=== PATIENT | male | born 1940 | race Two or more races ===

== ENCOUNTER 2020-09-28 13:40 | Inpatient (IN) | payer SELFPAY ==
[~2020-09-28] VITALS: Ht 162.6 cm; Wt 64.9 kg
[2020-09-28] VITALS (7 sets, daily range): BP systolic 99–140; BP diastolic 43–72
--- NOTE | 2020-09-28 13:41 | NUR ---
ED Nurse Note: Pt arrived with RA68 from home due to CP for x 3 days. pt denies dizziness, n/v/d. Pt was placed on panel monitor and gown. pt was given 4Lnasal cannula by EMS, pt saturating 90%. Pt began to de sat to 86%, pt placed on 15 L nonrebreathing saturaing at 98% Addendum: 09/28/20 at 1354 by PDELEON ED Nurse Note: Pt arrived with RA68 from home due to CP for x 3 days. pt denies dizziness, n/v/d. Pt was placed on panel monitor and gown. pt was given 4Lnasal cannula by EMS, pt saturating 90%. Pt began to de sat to 75-86%, pt placed on 15 L nonrebreathing saturaing at 90%
--- NOTE | 2020-09-28 13:54 | NUR ---
ED Nurse Note: informed ermd of pt staruation, called RT to place pt on high flow.
[2020-09-28] MEDS ORDERED: Albuterol/Ipratropium 3ml neb HHN ONE ×2 (14:15→17:45)
[2020-09-28] MEDS ORDERED: Cefepime HCl 2 GM in D5W 55 ML IVPB ONE (14:15)
[2020-09-28] MEDS ORDERED: Azithromycin 500 MG in NS 275 ML IV ONE (14:15)
[2020-09-28] MEDS ORDERED: dexAMETHasone 10mg/ml Inj IV ONE (14:15)
--- NOTE | 2020-09-28 14:18 | Emergency Room Report ---
History of Present Illness General Chief Complaint: Chest Pain Source: Patient Present Illness HPI Patient is an 80-year-old male past medical history of obesity, hypertension diabetes who presents to the ER complaining of chest pain for 3 days. Patient denies any fever or chills. He denies any cough or shortness of breath. He states that he does have a sick family member at home. Patient denies any smoki ng. He denies any lower extremity pain or edema. He denies any recent travel. She denies any abdominal pain, nausea or vomiting. Allergies: Coded Allergies: No Known Allergies (Unverified , 09/28/20) COVID-19 Screening Contact w/high risk pt: No Experienced COVID-19 symptoms?: No COVID-19 Testing performed LOAD TALLIER: No Patient History Reviewed Nursing Documentation: PMH: Agreed; PSxH: Agreed Review of Systems All Other Systems: negative except mentioned in HPI Physical Exam Vital Signs Date Time Temp Pulse Resp B/P (MAP) Pulse Ox O2 Delivery O2 Flow Rate FiO2 09/28/20 13:35 98.2 78 14 133/59 (83) 90 Nasal Cannula 4.0 Sp02 EP Interpretation: abnormal - hypoxia General Appearance: no apparent distress, alert, GCS 15, non-toxic Head: normocephalic, atraumatic ENT: hearing grossly normal, normal pharynx, no angioedema, normal voice Neck: full range of motion, no meningismus Respiratory: rhonchi, speaking full sentences Cardiovascular #1: regular rate, rhythm Gastrointestinal: non tender, soft, no guarding, no rebound Rectal: deferred Genitourinary: no CVA tenderness Musculoskeletal: normal range of motion, no calf tenderness Neurologic: building surveyor III-XII nml as tested, oriented x3 Psychiatric: no suicidal/homicidal ideation Skin: no rash Lymphatic: no adenopathy Procedures Critical Care Time Critical Care Time Total critical care time: Approximately 35 minutes. Due to a high probability of clinically significant, life threatening deterioration, the patient required my highest level of preparedness to intervene emergently and I personally spent this critical care time directly and personally managing the patient. This critical care time included obtaining a history; examining the patient; pulse oximetry; ordering and review of studies; arranging urgent treatment with development of a management plan; evaluation of patient's response to treatment; frequent reassessment; and, discussions with other providers.This critical care time was performed to assess and manage the high probability of imminent, life- threatening deterioration that could result in multi-organ failure. It was e xclusive of separately billable procedures and treating other patients and teaching time. Please see MDM section and the rest of the note for further information on patient assessment and treatment. Medical Decision Making Diagnostic Impression: Primary Impression: COVID-19 Additional Impressions: Pneumonia Anemia CHF (congestive heart failure) Acute renal failure ER Course Patient presents with chest pain. Patient hypoxic upon arrival. Patient placed on high flow O2 and given IV Decadron and started on DuoNeb. Oxygen saturation now 98%. Patient's chest x-ray demonstrates retrocardiac infiltrate. Patient started on broad-spectrum antibiotics. Patient is COVID-19 PCR positive. Patient's D-dimer elevated 2.7 with elevated creatinine of 1.7. Patient started on heparin. Patient will be admitted for further treatment and evaluation. Rhythm Strip Diag. Results Rhythm Strip Time: 14:18 EP Interpretation: yes - Sindy Portillo MD Rate: 73 bpm Rhythm: NSR, no PVC's, no ectopy Chest X-Ray Diagnostic Results Chest X-Ray Diagnostic Results : Chest X-Ray Ordered: Yes # of Views/Limited/Complete: 1 View Indication: Chest Pain EP Interpretation: Yes Interpretation: no effusion, no pneumothorax, other - Retrocardiac infiltrate Impression: Other - Pneumonia Electronically Signed by: Sindy Portillo MD Last Vital Signs Date Time Temp Pulse Resp B/P (MAP) Pulse Ox O2 Delivery O2 Flow Rate FiO2 09/28/20 13:50 78 14 Nasal Cannula 4.0 09/28/20 13:50 98.2 133/59 90 Disposition: ADMITTED INPATIENT - SDU Condition: Critical Physician Consult: Dr. Perez at 1543 Additional Instructions: Please note that this report is being documented using Active[employer] technology. This can lead to erroneous entry secondary to incorrect interpretation by the dictating instrument. Sindy Portillo M.D. Sep 28, 2020 14:18
[2020-09-28 14:36] LABS: BASOPHILS % (AUTO) 0.6 % (0.0-2.0); EOSINOPHILS % (AUTO) 0.1 % (0.0-3.0); HEMATOCRIT 29.9 % (42.0-52.0); HEMOGLOBIN 10.2 G/DL (14.2-18.0); LYMPHOCYTES % (AUTO) 18.8 % (20.0-45.0); MEAN CORPUSCULAR VOLUME 85 FL (80-99); MONOCYTES % (AUTO) 8.3 % (1.0-10.0); NEUTROPHILS % (AUTO) 72.2 % (45.0-75.0); PLATELET COUNT 206 K/UL (150-450); RED BLOOD COUNT 3.52 M/UL (4.70-6.10); RED CELL DISTRIBUTION WIDTH 12.7 % (11.6-14.8); WHITE BLOOD COUNT 7.5 K/UL (4.8-10.8)
[2020-09-28 14:48] LABS: CALCIUM 7.8 MG/DL (8.5-10.1); CREATININE 1.7 MG/DL (0.55-1.30); POTASSIUM 4.1 MMOL/L (3.5-5.1)
--- NOTE | 2020-09-28 15:00 | Diagnostic Imaging Report ---
Indication: Shortness of breath Technique: One view of the chest Comparison: None Findings: There is some consolidation in the retrocardiac region. There is atelectasis at the left lung base. The remainder the lungs and pleural spaces are clear. The heart is upper limits normal in size. Impression: Possible retrocardiac infiltrate Left basilar atelectasis
[2020-09-28 15:05] LABS: ALBUMIN 2.7 G/DL (3.4-5.0); ALBUMIN/GLOBULIN RATIO 0.7 (1.0-2.7); BILIRUBIN,TOTAL 0.4 MG/DL (0.2-1.0)
[2020-09-28] MEDS ORDERED: Heparin 5000 units/ml inj IV ONE (15:45)
[2020-09-28] MEDS ORDERED: Heparin 25,000u/D5W 500ml 500 ML IV SCH (15:45)
--- NOTE | 2020-09-28 18:04 | History and Physical Report ---
DATE OF ADMISSION: 09/28/2020 HISTORY OF PRESENT ILLNESS: This 80 years old patient came to the emergency room where he has COVID pneumonia, short of breath, hypoxia. Patient is now on non-rebreather mask. PAST MEDICAL HISTORY: Significant for hypertension, COPD. MEDICATIONS: See the list. ALLERGIES: NKA. FAMILY HISTORY: Noncontributory. SOCIAL HISTORY: Lives at home. PHYSICAL EXAMINATION: GENERAL: This is an elderly male, currently awake, comfortable. VITAL SIGNS: Blood pressure is 130/70, pulse 84, respirations 18, no fever. HEENT: AT/NC. EOMI. PERRLA. NECK: Supple. CHEST: Bilaterally few crackles. CARDIOVASCULAR: Regular rhythm. Tachycardia. ABDOMEN: Soft. Positive bowel sounds. Nontender. EXTREMITIES: No edema. GENITOURINARY: Deferred. LABORATORY DATA: Pending. ASSESSMENT: 1. COVID pneumonia. 2. COPD. 3. Hypertension. PLAN: Continue current treatment. Continue antibiotics. Add Decadron. We are going to admit him in the ICU. Discussed with the ER physician. Travis Perez M.D. DR: ELVIS JOB#: [id number] CC:
--- NOTE | 2020-09-28 19:10 | NUR ---
ED Nurse Note: Report received from EH STALLINGS Rt at bedside. Pt awake on bed, [id number]
--- NOTE | 2020-09-28 21:00 | NUR ---
ED Nurse Note: Pts daughter JOZEF called and would send the pts maintenance meds. Callback # [phone]
[2020-09-28] MEDS ORDERED: LOSARTAN POTASS25 MG ORAL (22:08)
[2020-09-28] MEDS ORDERED: METFORMIN HCL500 M1 ORAL (22:09)
[2020-09-28] MEDS ORDERED: AMLODIPINE BESY10 MG ORAL (22:10)
[2020-09-28] MEDS ORDERED: FLOMAX0.4 MG ORAL (22:10)
[2020-09-28] MEDS ORDERED: PROSCAR5 MG ORAL (22:11)
--- NOTE | 2020-09-28 22:30 | NUR ---
ED Nurse Note: Repeat PT sent; 6 hrs after start of heparin drip
--- NOTE | 2020-09-28 22:30 | NUR ---
ED Nurse Note: Report given to YINKA STALLINGS
--- NOTE | 2020-09-28 22:32 | NUR ---
ED Nurse Note: Pts meds deposited at pts med box and properly labeled and sealed.
--- NOTE | 2020-09-28 22:45 | NUR ---
TRANSFER TO FLOOR: Patient transferred to SDU to 234 per benito accompanied by RN, certified ophthalmic medical technician and RT with cardiac monitor technician. Belongings given and checked by RN. Patient transported safely to bed and endorsed to RN
--- NOTE | 2020-09-28 23:00 | NUR ---
NURSE NOTES: Received report from Da RN, pt. in bed awake, [place] Islander and little Malaysian speaking- able to understand and make needs known, no signs or symptoms of acute cardiac or respiratory distress noted, bed alarm on, side rails up x's 3 and safety brakes engaged, threat monitoring analyst placed on pt., pt. on High flow oxygen 50L Fio2 at 90%- sating >95- no distress noted- breathing unlabored and even, pt. unable to answer some questions as he does not speak much Malaysian, full body assessment done- skin intact, pt. denies pain, urinal at bedside and within easy reach, call light within easy reach, pt. has Rt. hand 18G IV intact and patent and Left left AC 18G IV intact and patent, safety measures continued, will continue with plan of care. Will contact primary MD for admission orders.
[2020-09-28 23:18] LABS: APPEARANCE,URINE CLEAR; BILIRUBIN, URINE NEGATIVE (NEGATIVE); COLOR,URINE PALE YELLOW; GLUCOSE, URINE (UA) NEGATIVE (NEGATIVE); KETONES,URINE NEGATIVE (NEGATIVE); LEUKOCYTE ESTERASE ,URINE NEGATIVE (NEGATIVE); NITRITE,URINE NEGATIVE (NEGATIVE); PH,URINE 5 (4.5-8.0); UROBILINOGEN,URINE NORMAL MG/DL (0.0-1.0)
--- NOTE | 2020-09-28 23:24 | NUR ---
NURSE NOTES: called DR. Escamilla exchange to get admission orders- per Teresa to call doctor Chris.
--- NOTE | 2020-09-28 23:27 | NUR ---
NURSE NOTES: Called DR. Perez for new admission orders- made doctor aware of D dimer results 0.76- per doctor to d/c Heparin drip- admission orders given over the phone- telephone orders re-verified and carried out.
[2020-09-28 23:37] LABS: PROTEIN,URINE NEGATIVE (NEGATIVE)
[2020-09-28] MEDS ORDERED: Albuterol 90mcg Inhaler 8gm INH PRN (23:45)
[2020-09-29] VITALS: BP 113/54
[2020-09-29 04:00] VITALS: BP 123/63
[2020-09-29] MEDS: Heparin 5000 units/ml inj SUBQ SCH ×2 (05:03→13:41)
--- NOTE | 2020-09-29 06:58 | NUR ---
NURSE HAND-OFF REPORT: Important Events on Shift:none Patient Status: stable Diet: regular Pending Orders: Pending Results/Labs: Pending MD notification: Latest Vital Signs: Temperature 97.5 , Pulse 62 , B/P 123 /63 , Respiratory Rate 20 , O2 SAT 100 , Venturi Mask, O2 Flow Rate 50.0 . Vital Sign Comment: EKG Rhythm: Sinus Bradycardia Rhythm change?: Y MD Notified?: N - MD Response: Latest Ross Fall Score: 45 Fall Risk: High Risk Safety Measures: Call light Within Reach, Bed Alarm Zone 3, Side Rails Side Rails x3, Bed position Low and Locked. Fall Precautions: Yellow Socks Yellow Gown Door Sign Patient Fall Education Report given to Raymon Gao- pt. remains stable and no signs of distress noted- aware to f/u on any abnormal am labs. Aware to f/u on patients home medications.
--- NOTE | 2020-09-29 07:30 | NUR ---
NURSE NOTES: Received report from HAYLIE Johnson. Patient is resting in bed, in stable condition. No s/sx of SOB, breathing is even and unlabored, on high flow oxygen 50 L FiO2 90% SpO2 95%. Patient denies pain or discomfort at this time. Bed is in lowest position, brakes engaged. Call light is kept within easy reach. Will continue to monitor patient.
[2020-09-29 08:00] VITALS: BP 119/64
--- NOTE | 2020-09-29 09:00 | NUR ---
NURSE NOTES: Dr. Chairez at nurse station. Made aware of patient's ABG: pH 7.396, pCO2 33.5, pO2 65.9, HCO3 20.1, O2 saturation 92. 1 SpO2 94%. Patient is on high flow oxygen 50 L FiO2 90%. Dr. Chairez acknowledged and gave no new orders at this time. Will continue to monitor patient.
--- NOTE | 2020-09-29 09:49 | General Progress Note ---
Subjective Cardiovascular: Denies: no symptoms, chest pain, edema, irregular heart rate, lightheadedness, palpitations, syncope, other Respiratory: Reports: cough, orthopnea, shortness of breath Allergies: Coded Allergies: No Known Allergies (Unverified , 09/28/20) Subjective sob on high flow Objective Last 24 Hour Vital Signs Date Time Temp Pulse Resp B/P (MAP) Pulse Ox O2 Delivery O2 Flow Rate FiO2 09/29/20 08:00 High Flow O2 50.0 09/29/20 08:00 97.7 65 20 119/64 (82) 95 09/29/20 08:00 50.0 90 09/29/20 04:00 50.0 90 09/29/20 04:00 High Flow O2 50.0 09/29/20 04:00 97.5 62 20 123/63 (83) 100 09/29/20 03:05 53 09/29/20 02:52 96 High Flow 50.0 80 09/29/20 01:32 96 High Flow 50.0 80 09/29/20 00:00 54 09/29/20 00:00 50.0 90 09/29/20 00:00 97.2 66 22 113/54 (73) 97 09/29/20 00:00 High Flow O2 50.0 09/28/20 23:38 58 09/28/20 23:04 High Flow O2 50.0 09/28/20 23:02 98.5 65 20 121/68 98 15.0 90 09/28/20 23:00 96.8 61 22 140/54 (82) 95 09/28/20 22:58 50.0 90 09/28/20 22:00 98.5 68 20 127/72 98 15.0 90 09/28/20 20:30 98.5 66 20 118/58 99 15.0 90 09/28/20 19:55 98 High Flow 90 09/28/20 19:30 98.5 63 19 121/68 100 Venturi Mask 15.0 90 09/28/20 19:17 72 20 100 100 67 20 100 09/28/20 17:25 98.5 69 22 120/48 100 Nasal Cannula 4.0 09/28/20 15:20 98.2 77 19 99/43 98 Nasal Cannula 4.0 09/28/20 13:50 78 14 Nasal Cannula 4.0 09/28/20 13:50 98.2 76 14 133/59 90 Nasal Cannula 4.0 09/28/20 13:35 98.2 78 14 133/59 (83) 90 Nasal Cannula 4.0 Intake and Output 09/28/20 09/29/20 19:00 07:00 Intake Total 330 ml Output Total 0 ml 400 ml Balance 330 ml -400 ml Intake IV Total 330 ml Output Urine Total 0 ml 400 ml Laboratory Tests 09/28/20 13:53: White Blood Count 7.5, Red Blood Count 3.52L, Hemoglobin 10.2L, Hematocrit 29.9L , Mean Corpuscular Volume 85, Mean Corpuscular Hemoglobin 29.1, Mean Corpuscular Hemoglobin Concent 34.3, Red Cell Distribution Width 12.7, Platelet Count 206, Mean Platelet Volume 9.2, Neutrophils (%) (Auto) 72.2, Lymphocytes (%) (Auto) 18.8L, Monocytes (%) (Auto) 8.3, Eosinophils (%) (Auto) 0.1, Basophils (%) (Auto) 0.6, Prothrombin Time 10.5, Prothromb Time International Ratio 1.0, Activated Partial Thromboplast Time 34H, D-Dimer 0.76H, Sodium Level 134L, Potassium Level 4.1, Chloride Level 102, Carbon Dioxide Level 21, Anion Gap 11, Blood Urea Nitrogen 28H, Creatinine 1.7H, Estimat Glomerular Filtration Rate 38.9, Glucose Level 251H, Lactic Acid Level 3.00H, Calcium Level 7.8L, Magnesium Level 1.9, Ferritin 1518H, Total Bilirubin 0.4, Aspartate Amino Transf (AST/SGOT) 45H, Alanine Aminotransferase (ALT/SGPT) 29, Alkaline Phosphatase 84, Lactate Dehydrogenase 333H, Troponin I 0.017, C-Reactive Protein, Quantitative 17.4H, Pro-B-Type Natriuretic Peptide 2225H, Total Protein 6.6, Albumin 2.7L, Globulin 3.9, Albumin/Globulin Ratio 0.7L 09/28/20 15:40: Lactic Acid Level 2.50H 09/28/20 17:01: Arterial Blood pH 7.396, Arterial Blood Partial Pressure CO2 33.5L, Arterial Blood Partial Pressure O2 65.9L, Arterial Blood HCO3 20.1L, Arterial Blood Oxygen Saturation 92.1L, Arterial Blood Base Excess -4.1L, Pratik Test Positive 09/28/20 22:30: Prothrombin Time 11.1, Prothromb Time International Ratio 1.0, Activated Partial Thromboplast Time 74H 09/28/20 23:00: Urine Color Pale yellow, Urine Appearance Clear, Urine pH 5, Urine Specific [place] 1.015, Urine Protein Negative, Urine Glucose (UA) Negative, Urine Ketones Negative, Urine Blood Negative, Urine Nitrite Negative, Urine Bilirubin Negative, Urine Urobilinogen Normal, Urine Leukocyte Esterase Negative Height (Feet): 5 Height (Inches): 4.00 Weight (Pounds): 143 General Appearance: alert EENT: PERRL/EOMI Neck: supple Cardiovascular: regular rhythm Respiratory/Chest: crackles/rales Abdomen: non tender, soft Genitourinary/Rectal: normal genital exam Extremities: non-tender Edema: mild edema Neurologic: design engineering technician II-XII grossly normal Assessment/Plan Assessment/Plan: covid 19 pna arf anemia admit to isolation decadron iv abx id and pulmo consult Davis Perez MD Sep 29, 2020 09:49
[2020-09-29 12:00] VITALS: BP 117/52
--- NOTE | 2020-09-29 12:25 | NUR ---
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 SI: COVID-19, Pneumonia, CHF, Acute Renal Failure, hypertension Pao2 75% on RA--O2 increased steadily to 50L high flow Fio2 90%-- Temp 98.2, HR 78, Resp 22, BP 133/59 ABG pco2 33.5, po2 65.9, hco3 20.1, o2 saturation 92.1, abg base excess -4.1 Na+ 134, BUN 28, Lactic acid 2.50, Cxray possible retrocardiac infiltrate, left basilar atelectasis IS: Cefepime IV Azithromycin IV Dexamethasone IV O2 -High flow O2 50L, FIo2 90 admit to SDU SDU status DCP: Pending hospitalization
[2020-09-29] MEDS: Azithromycin 500 MG in D5W 275 ML IV SCH (13:40)
[2020-09-29] MEDS ORDERED: metFORMIN 500mg tab ORAL ONE (14:00)
--- NOTE | 2020-09-29 14:44 | Consultation ---
DATE OF CONSULTATION: 09/29/2020 INFECTIOUS DISEASE CONSULTATION CONSULTING PHYSICIAN: Cm Quintanilla MD. REFERRING PHYSICIAN: Davis Perez MD. This consult is for coverage of Dr. Muñoz. REASON FOR CONSULTATION: COVID-19 disease. HISTORY OF PRESENT ILLNESS: This is an 80-year-old male admitted from home yesterday complaining of chest pain. He was also shortness of breath, hypoxemic, was found to have COVID-19 disease. PAST MEDICAL HISTORY: Diabetes and hypertension. ALLERGIES: No known drug allergies. MEDICATIONS: Cozaar, amlodipine, Proscar, Flomax, cefepime, azithromycin, dexamethasone, albuterol, and Tylenol. SOCIAL HISTORY: Single. Denies alcohol, drug abuse, or smoking. REVIEW OF SYSTEMS: Limited. Denies fever, but has dry cough and shortness of breath. PHYSICAL EXAMINATION: VITAL SIGNS: Temperature 97.7, pulse 65, blood pressure 119/64. GENERAL APPEARANCE: Seems to have normal weight. HEAD AND NECK: [place] conjunctivae. HEART: Normal rate. LUNGS: Getting oxygen by high-flow nasal cannula. Clear. ABDOMEN: Obese, soft. EXTREMITIES: No edema. NEUROLOGIC: He is awake, alert, responsive. LABORATORY AND DIAGNOSTIC DATA: WBC 7.5, hemoglobin 10.2, hematocrit 29.9, and platelets 206,000. Lymphocyte is 18.8%. Lactic acid is 2.5, coming down from 3. Sodium 134, potassium 4.1, chloride 102, bicarb 21, BUN 28, creatinine 1.7. Glucose is 251. Chest x-ray showed possible retrocardiac infiltrate, left basilar atelectasis. COVID-19 test was positive. Influenza A and B were negative. IMPRESSION: COVID-19 pneumonia, hypoxic respiratory failure, renal failure likely acute, diabetes mellitus with hyperglycemia, hypertension, anemia, lactic acidosis, lymphocytopenia. RECOMMENDATION: Discontinue cefepime. We will continue Zithromax and dexamethasone. Case was discussed with the pharmacy. At the end of my exam, I thank Dr. Perez for involving me in the care of this patient. Cm Quintanilla M.D. DR: JOSEFINA JOB#: [id number] CC:
[2020-09-29] MEDS ORDERED: Cefepime HCl 1 GM in D5W 55 ML IVPB SCH (15:00)
[2020-09-29 16:00] VITALS: BP 118/51
--- NOTE | 2020-09-29 16:01 | Consultation ---
DATE OF CONSULTATION: 09/29/2020 PULMONARY CONSULTATION CONSULTING PHYSICIAN: Harry Chairez M.D. HISTORY OF PRESENT ILLNESS: This is an 80-year-old male with history of hypertension and diabetes, who came to the hospital with chest pain. The patient has been having this pain for several days. He denies cough or shortness of breath. He does not report any tobacco use history. Denies any sick contact. The patient was seen and evaluated in the emergency room and admitted to the hospital after he was found to be possible COVID-19 by rapid gene assay. The patient also underwent a chest x-ray, which shows a small left infiltrate. The patient was found to be hypoxic and started on high-flow oxygen. Currently, he is on liters FiO2 90%. Saturations are 93%. PAST HISTORY: Notable for hypertension, diabetes, and also obesity. HOME MEDICATIONS: Reviewed and reconciled in the chart. REVIEW OF SYSTEMS: Denies any headaches, hematemesis, melena, hematochezia, night sweats or weight loss. PHYSICAL EXAMINATION: GENERAL: Reveals an 80-year-old male. HEENT: Unremarkable. LUNGS: Decreased breath sounds bilaterally. HEART: Normal heart sounds. ABDOMEN: Soft. EXTREMITIES: There is no edema. VITAL SIGNS: Blood pressure of 120/60, heart rate 80, respirations 20, O2 saturation 93% on high-flow oxygen. LABORATORY DATA: Lab testing shows hemoglobin 10.2, otherwise normal CBC. Creatinine is 1.7, sodium 134, glucose 251, lactic acid 3.0, ferritin 1518, AST 45, LDH 333, CRP 17.4, questionable D-dimer of 0.76. IMPRESSION: 1. COVID-19 pneumonia. 2. Hypertension. 3. Diabetes. DISCUSSION: Admit to the hospital. We will continue high-flow oxygen. Agree with the use of empiric antibiotics. He is also on Decadron orally. DVT prophylaxis with subcu heparin. We will follow carefully. Harry Chairez M.D. DR: PRESTON/MACIEL JOB#: [id number] CC:
--- NOTE | 2020-09-29 18:21 | NUR ---
NURSE NOTES: Contacted and informed Dr. Perez that per pharmacy unable to continue Metformin 500 mg PO Daily due to elevated creatinine level of 1.7. Dr. Perez acknowledged and ordered patient on medium Novolog insulin sliding scale ACHS. Order entered, noted, and carried out. Will continue to monitor patient.
--- NOTE | 2020-09-29 18:23 | Cardiology Progress Note ---
Assessment/Plan Assessment/Plan The patient is seen and examined, full consult note is dictated. Objective Last 24 Hour Vital Signs Date Time Temp Pulse Resp B/P (MAP) Pulse Ox O2 Delivery O2 Flow Rate FiO2 09/29/20 16:00 High Flow O2 50.0 09/29/20 16:00 98.1 64 25 118/51 (73) 94 09/29/20 16:00 50.0 90 09/29/20 16:00 64 09/29/20 15:57 93 High Flow 50.0 80 09/29/20 12:00 High Flow O2 50.0 09/29/20 12:00 97.2 66 20 117/52 (73) 93 09/29/20 12:00 64 09/29/20 12:00 50.0 90 09/29/20 11:55 94 High Flow 50.0 80 09/29/20 08:00 High Flow O2 50.0 09/29/20 08:00 75 09/29/20 08:00 97.7 65 20 119/64 (82) 95 09/29/20 08:00 50.0 90 09/29/20 07:59 93 High Flow 50.0 80 09/29/20 04:00 50.0 90 09/29/20 04:00 High Flow O2 50.0 09/29/20 04:00 97.5 62 20 123/63 (83) 100 09/29/20 03:05 53 09/29/20 02:52 96 High Flow 50.0 80 09/29/20 01:32 96 High Flow 50.0 80 09/29/20 00:00 54 09/29/20 00:00 50.0 90 09/29/20 00:00 97.2 66 22 113/54 (73) 97 09/29/20 00:00 High Flow O2 50.0 09/28/20 23:38 58 09/28/20 23:04 High Flow O2 50.0 09/28/20 23:02 98.5 65 20 121/68 98 15.0 90 09/28/20 23:00 96.8 61 22 140/54 (82) 95 09/28/20 22:58 50.0 90 09/28/20 22:00 98.5 68 20 127/72 98 15.0 90 09/28/20 20:30 98.5 66 20 118/58 99 15.0 90 09/28/20 19:55 98 High Flow 90 09/28/20 19:30 98.5 63 19 121/68 100 Venturi Mask 15.0 90 09/28/20 19:17 72 20 100 100 67 20 100 Intake and Output 09/28/20 09/29/20 19:00 07:00 Intake Total 330 ml Output Total 0 ml 400 ml Balance 330 ml -400 ml IV Total 330 ml Output Urine Total 0 ml 400 ml Laboratory Tests Test 09/28/20 22:30 09/28/20 23:00 Prothrombin Time 11.1 SEC (9.30-11.50) Prothromb Time International Ratio 1.0 (0.9-1.1) Activated Partial Thromboplast Time 74 SEC (23-33) H Urine Color Pale yellow Urine Appearance Clear Urine pH 5 (4.5-8.0) Urine Specific [place] 1.015 (1.005-1.035) Urine Protein Negative (NEGATIVE) Urine Glucose (UA) Negative (NEGATIVE) Urine Ketones Negative (NEGATIVE) Urine Blood Negative (NEGATIVE) Urine Nitrite Negative (NEGATIVE) Urine Bilirubin Negative (NEGATIVE) Urine Urobilinogen Normal MG/DL (0.0-1.0) Urine Leukocyte Esterase Negative (NEGATIVE) Microbiology Date/Time Source Procedure Growth Status 09/28/20 14:10 Nasal Nares - Final Complete 09/28/20 14:10 Nasal Nares - Final Complete 09/28/20 14:10 Nasopharynx SARS-CoV-2 RdRp Gene Assay - Final Complete 09/28/20 14:10 Blood Blood Culture - Preliminary NO GROWTH AFTER 24 HOURS Resulted 09/28/20 13:50 Blood Blood Culture - Preliminary NO GROWTH AFTER 24 HOURS Resulted Mitch Eldridge MD Sep 29, 2020 18:23
[2020-09-29] MEDS ORDERED: Aspirin Baby 81mg ORAL SCH (18:45)
--- NOTE | 2020-09-29 19:14 | NUR ---
NURSE HAND-OFF REPORT: Important Events on Shift: Patient Status: Stable Diet: Low sodium CCHO medium Pending Orders: None Pending Results/Labs:None Pending MD notification:None Latest Vital Signs: Temperature 98.1 , Pulse 64 , B/P 118 /51 , Respiratory Rate 25 , O2 SAT 94 , Venturi Mask, O2 Flow Rate 50.0 . Vital Sign Comment: Stable EKG Rhythm: SR,BBB Rhythm change?: N MD Notified?: N - MD Response: Latest Ross Fall Score: 45 Fall Risk: High Risk Safety Measures: Call light Within Reach, Bed Alarm Zone 2, Side Rails Side Rails x2, Bed position Low and Locked. Fall Precautions: Yellow Socks Yellow Gown Door Sign Patient Fall Education Report given to HAYLIE Mcintyre.
--- NOTE | 2020-09-29 19:24 | NUR ---
NURSE NOTES: Received report from HAYLIE Gao. Pt is awake, A/Ox4, Vietnamese speaking. No signs of distress or pain noted at this time. Pt is on high flow O2 50L, 90% FiO2, O2 saturation 94%. drone software development engineer shows SR. L AC 18g and R hand 18g asymptomatic and flushes well. Call light within reach. HOB elevated, side rails x2, bed alarmed, locked and in lowest position.
[2020-09-29 20:00] VITALS: BP 121/56
--- NOTE | 2020-09-29 20:45 | Consultation ---
DATE OF CONSULTATION: 09/29/2020 CARDIOLOGY CONSULTATION CONSULTING PHYSICIAN: Mitch Eldridge M.D. REFERRING PHYSICIAN: Travis Perez M.D. REASON FOR CONSULTATION: Management of chest pain. HISTORY OF PRESENT ILLNESS: The patient is a very unfortunate 80-year-old gentleman, who presents to the emergency department complaining of chest pain for about three days. At the time of arrival to the hospital, the patient denied any fever, chills, or nonproductive cough, loss of taste or smell. But, he claimed that he was exposed to a very sick family member at home. It is not clear whether the patient has had any COVID-19 exposure. His past medical history is significant for obesity and hypertension as well as diabetes mellitus. At the time of arrival to the emergency department, blood pressure was 133/59 mmHg and heart rate was 78. A 12-lead electrocardiogram was significant for sinus rhythm at a rate of 68 beats, a right bundle-branch block, but no acute ischemic features. In addition, the patient had left posterior fascicular block. In the emergency department, initial evaluation including chest x-ray revealed possible retrocardiac infiltration and left basilar atelectasis. Microbiology COVID-19 positive PCR. Laboratory finding was significant for anemia with a hemoglobin of 10.2 as well as elevation of BUN and creatinine at 28 and 1.7 respectively. Troponin I level was 0.017 and proBNP was 2225. The patient was admitted to [facility] for further evaluation and management of COVID-19 pneumonia and associated congestive heart failure. Cardiology consultation was made to address chest pain and elevation of brain-natriuretic peptide. PAST MEDICAL HISTORY: Obesity, hypertension, diabetes mellitus. ALLERGIES: No known drug allergies. PAST SURGICAL HISTORY: None. FAMILY HISTORY: No premature coronary artery disease in the first-degree relatives. REVIEW OF SYSTEMS: A 12-system review done essentially negative except what was mentioned in the history of present illness. MEDICATIONS: List of medications at home, losartan 100 mg p.o. daily, Proscar 5 mg p.o. daily, amlodipine 10 mg p.o. daily, metformin 500 mg once daily, and Flomax 0.4 mg p.o. daily. PHYSICAL EXAMINATION: VITAL SIGNS: Blood pressure was 133/59 mmHg, heart rate of 78, respirations 14, temperature 98.2 degrees Fahrenheit, and O2 saturation 98% on nasal cannula. GENERAL: The patient is a very unfortunate 80-year-old gentleman, in no apparent respiratory distress, nontoxic. HEENT: Atraumatic and normocephalic. Anicteric. Pupils are equal, round, and reactive to light and accommodation. Extraocular muscles intact. NECK: JVP is less than 5 cm. No carotid bruit. Carotid upstrokes 2+ bilaterally. CARDIOVASCULAR: Normal S1, S2. Regular rate and rhythm. No murmurs, gallops, or rubs. PMI is at fourth intercostal space in the midclavicular line. LUNGS: Bibasilar crackles. ABDOMEN: Soft, nontender, nondistended. No hepatosplenomegaly. Positive bowel sounds. EXTREMITIES: No evidence of edema, clubbing, or cyanosis. LABORATORY AND DIAGNOSTIC DATA: Laboratory findings, sodium was 134, potassium 4.1, chloride 103, bicarbonate 21, BUN of 28, creatinine 1.7, glucose is 251, and calcium is 7.8, magnesium is 1.9. WBC was , hemoglobin 10.2, hematocrit 29.9, and platelet count is 206. INR is 1.0, and D-dimer was elevated at 0.76. ASSESSMENT AND PLAN: The patient is a very unfortunate 80-year-old gentleman, seen in Cardiology consultation. 1. Chest pain, most likely due to COVID-19 associated pneumonia, D-dimer is elevated and I would recommend prophylactic dose of Lovenox in this patient as there is association with vascular thrombosis. 2. Elevated brain-natriuretic peptide with some infiltration in the base of the lung on the chest x-ray. We would like to rule out congestive heart failure. I would like to obtain 2D echocardiography for assessment of the LV systolic and diastolic function. 3. COVID-19 infection with possible pneumonia. Continue IV antibiotics. 4. Diabetes mellitus. The patient requires to be on antidiabetic medication. We would consider aspirin as well as statin in this patient. 5. History of hypertension. I will continue with amlodipine and losartan. In addition, the patient is on alpha fritz. Continue monitoring blood pressure in this patient. I would like to thank, Dr. Perez, for the courtesy of this consultation. Mitch Eldridge M.D. DR: KEREN JOB#: [id number] CC:
[2020-09-29] MEDS: Atorvastatin 20mg tab ORAL SCH (21:37)
[2020-09-29] MEDS: Tamsulosin 0.4mg cap ORAL SCH (21:37)
[2020-09-29] MEDS: Aspirin Baby 81mg ORAL SCH (21:37)
[2020-09-29] MEDS: Enoxaparin 30mg Inj SUBQ SCH (21:38)
--- NOTE | 2020-09-29 21:46 | NUR ---
NURSE NOTES: PM meds given, tolerated well. No complaints of pain or discomfort. Pt is saturating at 95% on high flow O2 50L, noted to desaturate to 85% when HOB is decreased to 15 degrees. Will continue to monitor.
--- NOTE | 2020-09-29 22:12 | NUR ---
NURSE NOTES: Daughter called, gave updates on pt's status.
[2020-09-29] MEDS: NovoLOG Insulin Flexpen SUBQ SCH (23:19)
[2020-09-30] VITALS: BP 135/73
--- NOTE | 2020-09-30 03:50 | NUR ---
NURSE NOTES: Pt refused assistance with partial bath and linen change. No BM noted. Will continue plan of care, will continue to monitor.
[2020-09-30 04:00] VITALS: BP 115/58
[2020-09-30] MEDS: NovoLOG Insulin Flexpen SUBQ SCH ×4 (05:43→20:42)
--- NOTE | 2020-09-30 07:09 | NUR ---
NURSE HAND-OFF REPORT: Important Events on Shift:[Niya, RN] Patient Status: [Stable] Diet: [Low sodium CCHO Medium] Pending Orders: [NA] Pending Results/Labs:[NA] Pending MD notification:[NA] Latest Vital Signs: Temperature 97.3 , Pulse 55 , B/P 115 /58 , Respiratory Rate 20 , O2 SAT 97 , Venturi Mask, O2 Flow Rate 50.0 . Vital Sign Comment: [Stable] EKG Rhythm: SB,BBB Rhythm change?: N MD Notified?: N - MD Response: Latest Ross Fall Score: 45 Fall Risk: High Risk Safety Measures: Call light Within Reach, Bed Alarm Zone 2, Side Rails Side Rails x2, Bed position Low and Locked. Fall Precautions: Yellow Socks Yellow Gown Door Sign Patient Fall Education Report given to [Niya, RN].
--- NOTE | 2020-09-30 07:29 | NUR ---
NURSE NOTES: Received patient in bed asleep. High flow O2 in place, no acute distress. IV line intact. HOB elevated. Bed locked in low position. Call light within reach. Will continue plan of care.
[2020-09-30 08:00] VITALS: BP 110/51
[2020-09-30] MEDS: Losartan 50mg tab ORAL SCH (09:00)
[2020-09-30] MEDS ORDERED: metFORMIN 500mg tab ORAL SCH (09:00)
[2020-09-30] MEDS: Aspirin Baby 81mg ORAL SCH (09:11)
[2020-09-30] MEDS: Enoxaparin 30mg Inj SUBQ SCH (09:12)
--- NOTE | 2020-09-30 10:31 | NUR ---
NURSE NOTES: Dr Eldridge ok to delay 2D echo, [facility] technical photographer made aware.
[2020-09-30] MEDS ORDERED: ARTIFICIAL TEAR15 ML BOTH EYES (11:05)
[2020-09-30 12:00] VITALS: BP 123/53
--- NOTE | 2020-09-30 12:23 | Pulmonology Progress Note ---
Subjective Interval Events: None new reported Allergies: Coded Allergies: No Known Allergies (Unverified , 09/28/20) Objective Last 24 Hour Vital Signs Date Time Temp Pulse Resp B/P (MAP) Pulse Ox O2 Delivery O2 Flow Rate FiO2 09/30/20 11:55 95 High Flow 50.0 80 09/30/20 09:00 110/51 09/30/20 09:00 57 110/51 09/30/20 08:00 97.0 57 22 110/51 (70) 90 09/30/20 08:00 High Flow O2 50.0 09/30/20 08:00 61 09/30/20 08:00 50.0 90 09/30/20 06:40 94 High Flow 50.0 80 09/30/20 04:00 50.0 90 09/30/20 04:00 97.3 55 20 115/58 (77) 97 09/30/20 04:00 High Flow O2 50.0 09/30/20 03:50 54 09/30/20 03:50 93 High Flow 50.0 80 09/30/20 00:00 97.5 64 25 135/73 (93) 92 09/30/20 00:00 High Flow O2 50.0 09/30/20 00:00 50.0 90 09/30/20 00:00 64 09/29/20 23:10 94 High Flow 50.0 80 09/29/20 20:00 97.7 61 22 121/56 (77) 95 09/29/20 20:00 High Flow O2 50.0 09/29/20 19:33 64 09/29/20 19:00 94 High Flow 50.0 80 09/29/20 16:00 High Flow O2 50.0 09/29/20 16:00 98.1 64 25 118/51 (73) 94 09/29/20 16:00 50.0 90 09/29/20 16:00 64 09/29/20 15:57 93 High Flow 50.0 80 Intake and Output 09/29/20 09/30/20 19:00 07:00 Intake Total 500 ml 350 ml Output Total 600 ml Balance -100 ml 350 ml Intake Oral 500 ml 350 ml Output Urine Total 600 ml General Appearance: no acute distress HEENT: normocephalic Respiratory: chest wall non-tender, decreased breath sounds Cardiovascular: normal peripheral pulses, normal rate Abdomen: normal bowel sounds Microbiology Date/Time Source Procedure Growth Status 09/28/20 14:10 Nasal Nares - Final Complete 09/28/20 14:10 Nasal Nares - Final Complete 09/28/20 14:10 Nasopharynx SARS-CoV-2 RdRp Gene Assay - Final Complete 09/28/20 14:10 Blood Blood Culture - Preliminary NO GROWTH AFTER 24 HOURS Resulted 09/28/20 13:50 Blood Blood Culture - Preliminary NO GROWTH AFTER 24 HOURS Resulted Laboratory Tests 09/30/20 03:40: Hemoglobin A1c 7.0H Current Medications Medications (Trade) Dose Ordered Sig/Tiffanie Route PRN Reason Start Time Stop Time Status Last Admin Dose Admin Acetaminophen (Tylenol) 650 mg Q4H PRN ORAL Mild Pain (Pain Scale 1-3)/ 09/28/20 23:45 10/28/20 23:44 Albuterol Sulfate (Proventil MDI) 2 puff Q6H PRN INH Shortness of Breath 09/28/20 23:45 12/27/20 23:44 Amlodipine Besylate (Norvasc) 10 mg DAILY ORAL 09/30/20 09:00 10/30/20 08:59 Aspirin (ASA) 81 mg DAILY ORAL 09/29/20 21:00 11/13/20 20:59 09/30/20 09:11 Atorvastatin Calcium (Lipitor) 40 mg BEDTIME ORAL 09/29/20 21:00 12/28/20 20:59 09/29/20 21:37 Azithromycin 500 mg/Dextrose 275 ml @ 275 mls/hr Q24HRS IV 09/29/20 14:00 10/04/20 13:59 09/29/20 13:40 Dexamethasone (Decadron) 6 mg DAILY ORAL 09/29/20 09:00 10/09/20 08:59 09/30/20 09:11 Dextrose (Dextrose 50%) 25 ml Q30M PRN IV Hypoglycemia 09/29/20 18:30 12/28/20 18:29 Dextrose (Dextrose 50%) 50 ml Q30M PRN IV Hypoglycemia 09/29/20 18:30 12/28/20 18:29 Enoxaparin Sodium (Lovenox) 30 mg DAILY SUBQ 09/29/20 21:00 12/28/20 20:59 09/30/20 09:12 Finasteride (Proscar) 5 mg DAILY ORAL 09/30/20 09:00 12/29/20 08:59 09/30/20 09:11 Insulin Aspart (NovoLOG) BEFORE MEALS AND HS SUBQ 09/29/20 21:00 12/28/20 20:59 09/30/20 11:33 Losartan Potassium (Cozaar) 100 mg DAILY ORAL 09/30/20 09:00 10/30/20 08:59 Tamsulosin HCl (Flomax) 0.4 mg BEDTIME ORAL 09/29/20 21:00 10/29/20 20:59 09/29/20 21:37 Assessment/Plan Assessment/Plan IMPRESSION: 1. COVID-19 pneumonia. 2. Hypertension. 3. Diabetes. 4. Respiratory failure with hypoxemia. DISCUSSION: Continue high-flow oxygen. Agree with the use of empiric antibiotics. He is also on Decadron orally. He may benefit from Remdesivir; will defer to ID DVT prophylaxis with subcu heparin. I will follow carefully. Clary Camp Omar Syed MD Sep 30, 2020 12:23
[2020-09-30] MEDS: Azithromycin 500 MG in D5W 275 ML IV SCH (13:34)
--- NOTE | 2020-09-30 13:35 | General Progress Note ---
Subjective Allergies: Coded Allergies: No Known Allergies (Unverified , 09/28/20) Subjective sob on high flow Objective Last 24 Hour Vital Signs Date Time Temp Pulse Resp B/P (MAP) Pulse Ox O2 Delivery O2 Flow Rate FiO2 09/30/20 12:00 97.7 64 36 123/53 (76) 83 09/30/20 11:55 95 High Flow 50.0 80 09/30/20 09:00 110/51 09/30/20 09:00 57 110/51 09/30/20 08:00 97.0 57 22 110/51 (70) 90 09/30/20 08:00 High Flow O2 50.0 09/30/20 08:00 61 09/30/20 08:00 50.0 90 09/30/20 06:40 94 High Flow 50.0 80 09/30/20 04:00 50.0 90 09/30/20 04:00 97.3 55 20 115/58 (77) 97 09/30/20 04:00 High Flow O2 50.0 09/30/20 03:50 54 09/30/20 03:50 93 High Flow 50.0 80 09/30/20 00:00 97.5 64 25 135/73 (93) 92 09/30/20 00:00 High Flow O2 50.0 09/30/20 00:00 50.0 90 09/30/20 00:00 64 09/29/20 23:10 94 High Flow 50.0 80 09/29/20 20:00 97.7 61 22 121/56 (77) 95 09/29/20 20:00 High Flow O2 50.0 09/29/20 19:33 64 09/29/20 19:00 94 High Flow 50.0 80 09/29/20 16:00 High Flow O2 50.0 09/29/20 16:00 98.1 64 25 118/51 (73) 94 09/29/20 16:00 50.0 90 09/29/20 16:00 64 09/29/20 15:57 93 High Flow 50.0 80 Intake and Output 09/29/20 09/30/20 19:00 07:00 Intake Total 500 ml 350 ml Output Total 600 ml Balance -100 ml 350 ml Intake Oral 500 ml 350 ml Output Urine Total 600 ml Laboratory Tests 09/30/20 03:40: Hemoglobin A1c 7.0H Height (Feet): 5 Height (Inches): 4.00 Weight (Pounds): 143 General Appearance: alert EENT: PERRL/EOMI Neck: supple Cardiovascular: regular rhythm Respiratory/Chest: lungs clear, rhonchi - bilaterally Abdomen: non tender, soft Extremities: non-tender Assessment/Plan Assessment/Plan: covid 19 pna arf anemia admit to isolation decadron iv abx id and pulmo consult Davis Perez MD Sep 30, 2020 13:35
--- NOTE | 2020-09-30 14:14 | Infectious Diseases Prog Note ---
Assessment/Plan Assessment/Plan IMPRESSION: COVID-19 pneumonia, Hypoxic respiratory failure, Renal failure likely acute, Diabetes mellitus with hyperglycemia, Hypertension, Anemia, Lactic acidosis, Lymphocytopenia. RECOMMENDATION: Discontinue cefepime. We will continue Zithromax and dexamethasone. Subjective ROS Limited/Unobtainable: Yes Constitutional: Reports: no symptoms, other - feels betteer Respiratory: Reports: shortness of breath, productive cough Allergies: Coded Allergies: No Known Allergies (Unverified , 09/28/20) Objective Last 24 Hour Vital Signs Date Time Temp Pulse Resp B/P (MAP) Pulse Ox O2 Delivery O2 Flow Rate FiO2 09/30/20 12:00 97.7 64 36 123/53 (76) 83 09/30/20 11:55 95 High Flow 50.0 80 09/30/20 09:00 110/51 09/30/20 09:00 57 110/51 09/30/20 08:00 97.0 57 22 110/51 (70) 90 09/30/20 08:00 High Flow O2 50.0 09/30/20 08:00 61 09/30/20 08:00 50.0 90 09/30/20 06:40 94 High Flow 50.0 80 09/30/20 04:00 50.0 90 09/30/20 04:00 97.3 55 20 115/58 (77) 97 09/30/20 04:00 High Flow O2 50.0 09/30/20 03:50 54 09/30/20 03:50 93 High Flow 50.0 80 09/30/20 00:00 97.5 64 25 135/73 (93) 92 09/30/20 00:00 High Flow O2 50.0 09/30/20 00:00 50.0 90 09/30/20 00:00 64 09/29/20 23:10 94 High Flow 50.0 80 09/29/20 20:00 97.7 61 22 121/56 (77) 95 09/29/20 20:00 High Flow O2 50.0 09/29/20 19:33 64 09/29/20 19:00 94 High Flow 50.0 80 09/29/20 16:00 High Flow O2 50.0 09/29/20 16:00 98.1 64 25 118/51 (73) 94 09/29/20 16:00 50.0 90 09/29/20 16:00 64 09/29/20 15:57 93 High Flow 50.0 80 Height (Feet): 5 Height (Inches): 4.00 Weight (Pounds): 143 HEENT: mucous membranes moist Respiratory/Chest: other - oxygen by high flow nasal cannula Cardiovascular: normal rate Abdomen: soft, non tender Extremities: no edema Neurologic/Psychiatric: alert, responsive Microbiology Date/Time Source Procedure Growth Status 09/28/20 14:10 Nasal Nares - Final Complete 09/28/20 14:10 Nasal Nares - Final Complete 09/28/20 14:10 Nasopharynx SARS-CoV-2 RdRp Gene Assay - Final Complete 09/28/20 14:10 Blood Blood Culture - Preliminary NO GROWTH AFTER 24 HOURS Resulted 09/28/20 13:50 Blood Blood Culture - Preliminary NO GROWTH AFTER 24 HOURS Resulted Laboratory Tests Test 09/30/20 03:40 Hemoglobin A1c 7.0 % (4.3-6.0) H Current Medications Medications (Trade) Dose Ordered Sig/Tiffanie Route PRN Reason Start Time Stop Time Status Last Admin Dose Admin Acetaminophen (Tylenol) 650 mg Q4H PRN ORAL Mild Pain (Pain Scale 1-3)/ 09/28/20 23:45 10/28/20 23:44 Albuterol Sulfate (Proventil MDI) 2 puff Q6H PRN INH Shortness of Breath 09/28/20 23:45 12/27/20 23:44 Amlodipine Besylate (Norvasc) 10 mg DAILY ORAL 09/30/20 09:00 10/30/20 08:59 Aspirin (ASA) 81 mg DAILY ORAL 09/29/20 21:00 11/13/20 20:59 09/30/20 09:11 Atorvastatin Calcium (Lipitor) 40 mg BEDTIME ORAL 09/29/20 21:00 12/28/20 20:59 09/29/20 21:37 Azithromycin 500 mg/Dextrose 275 ml @ 275 mls/hr Q24HRS IV 09/29/20 14:00 10/04/20 13:59 09/30/20 13:34 Dexamethasone (Decadron) 6 mg DAILY ORAL 09/29/20 09:00 10/09/20 08:59 09/30/20 09:11 Dextrose (Dextrose 50%) 25 ml Q30M PRN IV Hypoglycemia 09/29/20 18:30 12/28/20 18:29 Dextrose (Dextrose 50%) 50 ml Q30M PRN IV Hypoglycemia 09/29/20 18:30 12/28/20 18:29 Enoxaparin Sodium (Lovenox) 30 mg DAILY SUBQ 09/29/20 21:00 12/28/20 20:59 09/30/20 09:12 Finasteride (Proscar) 5 mg DAILY ORAL 09/30/20 09:00 12/29/20 08:59 09/30/20 09:11 Insulin Aspart (NovoLOG) BEFORE MEALS AND HS SUBQ 09/30/20 16:30 12/29/20 16:29 Ivermectin (StromectoL) 12 mg ONCE ORAL 09/30/20 14:00 09/30/20 16:00 Losartan Potassium (Cozaar) 100 mg DAILY ORAL 09/30/20 09:00 10/30/20 08:59 Tamsulosin HCl (Flomax) 0.4 mg BEDTIME ORAL 09/29/20 21:00 10/29/20 20:59 09/29/20 21:37 Cm Quintanilla MD Sep 30, 2020 14:14
--- NOTE | 2020-09-30 15:40 | NUR ---
Replaced Water. Heated humidification at 36.4 deg Lin
[2020-09-30] MEDS ORDERED: Milk of Magnesia 30ml Ud ORAL PRN (15:45)
[2020-09-30 16:00] VITALS: BP 104/54
--- NOTE | 2020-09-30 18:00 | NUR ---
Assisted with transport to 218. Placed on 100% NRM as tor. Dr Chairez aware. HFNC standby at bedside.
--- NOTE | 2020-09-30 18:20 | NUR ---
NURSE NOTES: Pt recieved from Niya RN. pt in bed no complaint of pain or SOb, no distress noted. Bed low and locked, telel box in place. Vitals as follows 149/64, 89 HR, 20 resp, 97.8, 92% on 15 liters 100% FiO2 non rebreather. Awaiting parameter from RT for transfer to [facility]
--- NOTE | 2020-09-30 18:21 | NUR ---
HAND-OFF: Patient placed on non-rebreather mask as per RT who got the orders from Dr Chairez. Transferred patient to 218. Standby high flow O2 at bedside. Belongings accounted for. Report given to Devi STALLINGS.
[2020-09-30] MEDS: Docusate 100mg cap ORAL SCH (18:23)
--- NOTE | 2020-09-30 19:01 | NUR ---
NURSE HAND-OFF REPORT: Important Events on Shift:[Pt arrived from SDU 1 hour ago, no remarkable events] Patient Status: [Full code] Diet: [low Na CCHO M] Pending Orders: [] Pending Results/Labs:[] Pending MD notification:[] Latest Vital Signs: Temperature 96.8 , Pulse 64 , B/P 104 /54 , Respiratory Rate 24 , O2 SAT 89 , Venturi Mask, O2 Flow Rate 50.0 . Vital Sign Comment: [] EKG Rhythm: SB,BBB Rhythm change?: N MD Notified?: N - MD Response: Latest Ross Fall Score: 45 Fall Risk: High Risk Safety Measures: Call light Within Reach, Bed Alarm Zone 2, Side Rails Side Rails x2, Bed position Low and Locked. Fall Precautions: Yellow Socks Yellow Gown Door Sign Patient Fall Education Report given to [Pending Rn assignment]. Addendum: 09/30/20 at 2 by Devi Macdonald RN Report given to Sofie STALLINGS
--- NOTE | 2020-09-30 19:02 | NUR ---
NURSE NOTES: Received report from HAYLIE Quinonez; noted AOX4, nepali speaking, comfortable in bed; transferred from SDU during AM shift; on non-rebreather mask 15L 100% FiO2; in no acute distress; COVID +; bedbound; encouraged toa sk for assistance; call light and urinal within reach; With IV iste on R hand and L AC both 18 gauge S/L, intact and patent; accucheck ACHS; will monitor blood sugar levels; bed lockerd and in low position, side rails x 2; will continue to monitor.
[2020-09-30 20:00] VITALS: BP 143/60
[2020-09-30] MEDS: Tamsulosin 0.4mg cap ORAL SCH (20:37)
[2020-09-30] MEDS: Atorvastatin 20mg tab ORAL SCH (20:37)
[2020-10-01] VITALS: BP 134/64
[2020-10-01 04:00] VITALS: BP 132/65
[2020-10-01] MEDS: NovoLOG Insulin Flexpen SUBQ SCH ×4 (06:13→21:31)
--- NOTE | 2020-10-01 06:53 | NUR ---
NURSE HAND-OFF REPORT: Important Events on Shift: On 15L non-rebreather mask FiO2 100% Patient Status: AOX4, STABLE, ASLEEP MOST OF THE NIGHT Diet: Low sodium, CCHO medium, thin liquids Pending Orders: 2D echo 10/05 Pending Results/Labs: N Pending MD notification: N Latest Vital Signs: Temperature 97.0 , Pulse 52 , B/P 132 /65 , Respiratory Rate 20 , O2 SAT 92% O2 Flow Rate 15.0 non-rebreather mask . Vital Sign Comment: stable EKG Rhythm: SB W/ BBB Rhythm change?: N MD Notified?: N - MD Response: Latest Ross Fall Score: 45 Fall Risk: High Risk Safety Measures: Call light Within Reach, Bed Alarm Zone 2, Side Rails Side Rails x2, Bed position Low and Locked. Fall Precautions: Yellow Socks Yellow Gown Door Sign Patient Fall Education Report given to HAYLIE Stanton
--- NOTE | 2020-10-01 07:25 | NUR ---
NURSE NOTES: Received patient in bed. Awake, A/O x3. On nonrebreather, respirations unlabored. Patient denies pain at this time. Bed low and locked, side rails up x2, call light within reach with return demonstration.
[2020-10-01 08:00] VITALS: BP 145/63
[2020-10-01] MEDS: Losartan 50mg tab ORAL SCH (09:39)
[2020-10-01] MEDS: Docusate 100mg cap ORAL SCH ×2 (09:39→17:03)
[2020-10-01] MEDS: Aspirin Baby 81mg ORAL SCH (09:39)
[2020-10-01] MEDS: Enoxaparin 30mg Inj SUBQ SCH (09:41)
--- NOTE | 2020-10-01 11:46 | Pulmonology Progress Note ---
Subjective ROS Limited/Unobtainable: Yes Interval Events: Transferred to telemetry unit Constitutional: Reports: no symptoms, other - feels betteer HEENT: Repors: no symptoms Respiratory: Reports: no symptoms Cardiovascular: Reports: no symptoms Gastrointestinal/Abdominal: Reports: no symptoms Genitourinary: Reports: no symptoms Allergies: Coded Allergies: No Known Allergies (Unverified , 09/28/20) Objective Last 24 Hour Vital Signs Date Time Temp Pulse Resp B/P (MAP) Pulse Ox O2 Delivery O2 Flow Rate FiO2 10/01/20 09:39 145/63 10/01/20 09:39 63 145/63 10/01/20 09:00 Non-Rebreather 15.0 10/01/20 08:00 96.4 63 20 145/63 (90) 94 10/01/20 08:00 15.0 100 10/01/20 08:00 51 10/01/20 04:00 97.0 61 20 132/65 (87) 10/01/20 04:00 15.0 100 10/01/20 04:00 52 10/01/20 00:00 97.2 63 20 134/64 (87) 92 10/01/20 00:00 15.0 100 10/01/20 00:00 61 09/30/20 21:00 Non-Rebreather 15.0 09/30/20 20:00 15.0 100 09/30/20 20:00 97.4 63 20 143/60 (87) 94 09/30/20 20:00 62 09/30/20 19:33 91 Non-Rebreather 15.0 100 09/30/20 16:00 96.8 64 24 104/54 (71) 89 09/30/20 15:59 50.0 90 09/30/20 15:57 High Flow O2 50.0 09/30/20 15:55 66 09/30/20 15:40 96 High Flow 50.0 80 09/30/20 12:00 97.7 64 36 123/53 (76) 83 09/30/20 12:00 50.0 90 09/30/20 12:00 High Flow O2 50.0 09/30/20 12:00 59 09/30/20 11:55 95 High Flow 50.0 80 Intake and Output 09/30/20 10/01/20 19:00 07:00 Intake Total 275 ml Output Total 1200 ml Balance -925 ml IV Total 275 ml Output Urine Total 1200 ml # Voids 3 Objective Now on nonrebreather mask General Appearance: no acute distress HEENT: normocephalic Respiratory: chest wall non-tender, decreased breath sounds Cardiovascular: normal peripheral pulses, normal rate Abdomen: normal bowel sounds Microbiology Date/Time Source Procedure Growth Status 09/28/20 14:10 Nasal Nares - Final Complete 09/28/20 14:10 Nasal Nares - Final Complete 09/28/20 14:10 Nasopharynx SARS-CoV-2 RdRp Gene Assay - Final Complete 09/28/20 14:10 Blood Blood Culture - Preliminary NO GROWTH AFTER 24 HOURS Resulted 09/28/20 13:50 Blood Blood Culture - Preliminary NO GROWTH AFTER 24 HOURS Resulted Laboratory Tests 09/30/20 20:40: POC Whole Blood Glucose 342H 10/01/20 05:29: POC Whole Blood Glucose 197H 10/01/20 11:41: POC Whole Blood Glucose 295H Current Medications Medications (Trade) Dose Ordered Sig/Tiffanie Route PRN Reason Start Time Stop Time Status Last Admin Dose Admin Acetaminophen (Tylenol) 650 mg Q4H PRN ORAL Mild Pain (Pain Scale 1-3)/ 09/28/20 23:45 10/28/20 23:44 Albuterol Sulfate (Proventil MDI) 2 puff Q6H PRN INH Shortness of Breath 09/28/20 23:45 12/27/20 23:44 Amlodipine Besylate (Norvasc) 10 mg DAILY ORAL 09/30/20 09:00 10/30/20 08:59 10/01/20 09:39 Aspirin (ASA) 81 mg DAILY ORAL 09/29/20 21:00 11/13/20 20:59 10/01/20 09:39 Atorvastatin Calcium (Lipitor) 40 mg BEDTIME ORAL 09/29/20 21:00 12/28/20 20:59 09/30/20 20:37 Azithromycin 500 mg/Dextrose 275 ml @ 275 mls/hr Q24HRS IV 09/29/20 14:00 10/04/20 13:59 09/30/20 13:34 Dexamethasone (Decadron) 6 mg DAILY ORAL 09/29/20 09:00 10/09/20 08:59 10/01/20 09:39 Dextrose (Dextrose 50%) 25 ml Q30M PRN IV Hypoglycemia 09/29/20 18:30 12/28/20 18:29 Dextrose (Dextrose 50%) 50 ml Q30M PRN IV Hypoglycemia 09/29/20 18:30 12/28/20 18:29 Docusate Sodium (Colace) 100 mg TWICE A DAY ORAL 09/30/20 18:00 10/30/20 17:59 10/01/20 09:39 Enoxaparin Sodium (Lovenox) 30 mg DAILY SUBQ 09/29/20 21:00 12/28/20 20:59 10/01/20 09:41 Finasteride (Proscar) 5 mg DAILY ORAL 09/30/20 09:00 12/29/20 08:59 10/01/20 09:39 Insulin Aspart (NovoLOG) BEFORE MEALS AND HS SUBQ 09/30/20 16:30 12/29/20 16:29 10/01/20 06:13 Losartan Potassium (Cozaar) 100 mg DAILY ORAL 09/30/20 09:00 10/30/20 08:59 10/01/20 09:39 Magnesium Hydroxide (Mom) 30 ml BIDPRN PRN ORAL Constipation 09/30/20 15:45 10/30/20 15:44 Tamsulosin HCl (Flomax) 0.4 mg BEDTIME ORAL 09/29/20 21:00 10/29/20 20:59 09/30/20 20:37 Assessment/Plan Assessment/Plan IMPRESSION: 1. COVID-19 pneumonia. 2. Hypertension. 3. Diabetes. 4. Respiratory failure with hypoxemia. DISCUSSION: Continue nonrebreather mask Agree with the use of empiric antibiotics. He is also on Decadron orally. He may benefit from Remdesivir; will defer to ID DVT prophylaxis with subcu heparin. I will follow carefully. Clary Camp Omar Syed MD Oct 01, 2020 11:46
[2020-10-01 12:00] VITALS: BP 138/68
--- NOTE | 2020-10-01 12:12 | Infectious Diseases Prog Note ---
Assessment/Plan Assessment/Plan IMPRESSION: COVID-19 pneumonia, Hypoxic respiratory failure, Renal failure likely acute, Diabetes mellitus with hyperglycemia, Hypertension, Anemia, Lactic acidosis, Lymphocytopenia. RECOMMENDATION: We will continue Zithromax &dexamethasone. Will f/u BMP if GFR>30% will consider Remdesivir Subjective ROS Limited/Unobtainable: Yes Constitutional: Denies: fever Respiratory: Reports: shortness of breath Allergies: Coded Allergies: No Known Allergies (Unverified , 09/28/20) Objective Last 24 Hour Vital Signs Date Time Temp Pulse Resp B/P (MAP) Pulse Ox O2 Delivery O2 Flow Rate FiO2 10/01/20 09:39 145/63 10/01/20 09:39 63 145/63 10/01/20 09:00 Non-Rebreather 15.0 10/01/20 08:00 96.4 63 20 145/63 (90) 94 10/01/20 08:00 15.0 100 10/01/20 08:00 51 10/01/20 04:00 97.0 61 20 132/65 (87) 10/01/20 04:00 15.0 100 10/01/20 04:00 52 10/01/20 00:00 97.2 63 20 134/64 (87) 92 10/01/20 00:00 15.0 100 10/01/20 00:00 61 09/30/20 21:00 Non-Rebreather 15.0 09/30/20 20:00 15.0 100 09/30/20 20:00 97.4 63 20 143/60 (87) 94 09/30/20 20:00 62 09/30/20 19:33 91 Non-Rebreather 15.0 100 09/30/20 16:00 96.8 64 24 104/54 (71) 89 09/30/20 15:59 50.0 90 09/30/20 15:57 High Flow O2 50.0 09/30/20 15:55 66 09/30/20 15:40 96 High Flow 50.0 80 Height (Feet): 5 Height (Inches): 4.00 Weight (Pounds): 143 General Appearance: no acute distress HEENT: mucous membranes moist Respiratory/Chest: other - oxygen by mask Cardiovascular: normal rate Abdomen: soft, non tender Extremities: no edema Neurologic/Psychiatric: alert, responsive Microbiology Date/Time Source Procedure Growth Status 09/28/20 14:10 Nasal Nares - Final Complete 09/28/20 14:10 Nasal Nares - Final Complete 09/28/20 14:10 Nasopharynx SARS-CoV-2 RdRp Gene Assay - Final Complete 09/28/20 14:10 Blood Blood Culture - Preliminary NO GROWTH AFTER 24 HOURS Resulted 09/28/20 13:50 Blood Blood Culture - Preliminary NO GROWTH AFTER 24 HOURS Resulted Laboratory Tests Test 09/30/20 20:40 10/01/20 05:29 10/01/20 11:41 POC Whole Blood Glucose 342 MG/DL (74-106) H 197 MG/DL (74-106) H 295 MG/DL (74-106) H Current Medications Medications (Trade) Dose Ordered Sig/Tiffanie Route PRN Reason Start Time Stop Time Status Last Admin Dose Admin Acetaminophen (Tylenol) 650 mg Q4H PRN ORAL Mild Pain (Pain Scale 1-3)/ 09/28/20 23:45 10/28/20 23:44 Albuterol Sulfate (Proventil MDI) 2 puff Q6H PRN INH Shortness of Breath 09/28/20 23:45 12/27/20 23:44 Amlodipine Besylate (Norvasc) 10 mg DAILY ORAL 09/30/20 09:00 10/30/20 08:59 10/01/20 09:39 Aspirin (ASA) 81 mg DAILY ORAL 09/29/20 21:00 11/13/20 20:59 10/01/20 09:39 Atorvastatin Calcium (Lipitor) 40 mg BEDTIME ORAL 09/29/20 21:00 12/28/20 20:59 09/30/20 20:37 Azithromycin 500 mg/Dextrose 275 ml @ 275 mls/hr Q24HRS IV 09/29/20 14:00 10/04/20 13:59 09/30/20 13:34 Dexamethasone (Decadron) 6 mg DAILY ORAL 09/29/20 09:00 10/09/20 08:59 10/01/20 09:39 Dextrose (Dextrose 50%) 25 ml Q30M PRN IV Hypoglycemia 09/29/20 18:30 12/28/20 18:29 Dextrose (Dextrose 50%) 50 ml Q30M PRN IV Hypoglycemia 09/29/20 18:30 12/28/20 18:29 Docusate Sodium (Colace) 100 mg TWICE A DAY ORAL 09/30/20 18:00 10/30/20 17:59 10/01/20 09:39 Enoxaparin Sodium (Lovenox) 30 mg DAILY SUBQ 09/29/20 21:00 12/28/20 20:59 10/01/20 09:41 Finasteride (Proscar) 5 mg DAILY ORAL 09/30/20 09:00 12/29/20 08:59 10/01/20 09:39 Insulin Aspart (NovoLOG) BEFORE MEALS AND HS SUBQ 09/30/20 16:30 12/29/20 16:29 10/01/20 11:45 Losartan Potassium (Cozaar) 100 mg DAILY ORAL 09/30/20 09:00 10/30/20 08:59 10/01/20 09:39 Magnesium Hydroxide (Mom) 30 ml BIDPRN PRN ORAL Constipation 09/30/20 15:45 10/30/20 15:44 Tamsulosin HCl (Flomax) 0.4 mg BEDTIME ORAL 09/29/20 21:00 10/29/20 20:59 09/30/20 20:37 Cm Quintanilla MD Oct 01, 2020 12:12
[2020-10-01] MEDS: Azithromycin 500 MG in D5W 275 ML IV SCH (13:16)
--- NOTE | 2020-10-01 15:00 | General Progress Note ---
Subjective Allergies: Coded Allergies: No Known Allergies (Unverified , 09/28/20) Subjective sob on high flow Objective Last 24 Hour Vital Signs Date Time Temp Pulse Resp B/P (MAP) Pulse Ox O2 Delivery O2 Flow Rate FiO2 10/01/20 12:00 69 10/01/20 12:00 15.0 100 10/01/20 12:00 97.6 64 18 138/68 (91) 94 10/01/20 09:39 145/63 10/01/20 09:39 63 145/63 10/01/20 09:00 Non-Rebreather 15.0 10/01/20 08:00 96.4 63 20 145/63 (90) 94 10/01/20 08:00 15.0 100 10/01/20 08:00 51 10/01/20 04:00 97.0 61 20 132/65 (87) 10/01/20 04:00 15.0 100 10/01/20 04:00 52 10/01/20 00:00 97.2 63 20 134/64 (87) 92 10/01/20 00:00 15.0 100 10/01/20 00:00 61 09/30/20 21:00 Non-Rebreather 15.0 09/30/20 20:00 15.0 100 09/30/20 20:00 97.4 63 20 143/60 (87) 94 09/30/20 20:00 62 09/30/20 19:33 91 Non-Rebreather 15.0 100 09/30/20 16:00 96.8 64 24 104/54 (71) 89 09/30/20 15:59 50.0 90 09/30/20 15:57 High Flow O2 50.0 09/30/20 15:55 66 09/30/20 15:40 96 High Flow 50.0 80 Intake and Output 09/30/20 10/01/20 19:00 07:00 Intake Total 275 ml Output Total 1200 ml Balance -925 ml IV Total 275 ml Output Urine Total 1200 ml # Voids 3 Laboratory Tests 09/30/20 20:40: POC Whole Blood Glucose 342H 10/01/20 05:29: POC Whole Blood Glucose 197H 10/01/20 11:41: POC Whole Blood Glucose 295H Height (Feet): 5 Height (Inches): 4.00 Weight (Pounds): 143 General Appearance: alert EENT: PERRL/EOMI Neck: supple Cardiovascular: tachycardia Respiratory/Chest: rhonchi - bilaterally Abdomen: non tender, soft Extremities: non-tender Assessment/Plan Assessment/Plan: covid 19 pna arf anemia admit to isolation decadron iv abx id and pulmo consult Davis Perez MD Oct 01, 2020 15:00
[2020-10-01 15:54] VITALS: BP 126/57
--- NOTE | 2020-10-01 17:56 | Cardiology Progress Note ---
Assessment/Plan Assessment/Plan 1. Chest pain, most likely due to COVID-19 associated pneumonia, high D-dimer, continue Lovenox. 2. COVID-19 infection with possible pneumonia. Continue IV antibiotics. 3. Diabetes mellitus, continue aspirin and atorvastatin. 4. Hypertension, well controlled, continue amlodipine, flomax and losartan. Subjective Subjective Sinus rhythm at rate of 63. Objective Last 24 Hour Vital Signs Date Time Temp Pulse Resp B/P (MAP) Pulse Ox O2 Delivery O2 Flow Rate FiO2 10/01/20 16:00 15.0 100 10/01/20 16:00 63 10/01/20 15:54 98.1 60 19 126/57 (80) 99 10/01/20 12:00 69 10/01/20 12:00 15.0 100 10/01/20 12:00 97.6 64 18 138/68 (91) 94 10/01/20 09:39 145/63 10/01/20 09:39 63 145/63 10/01/20 09:00 Non-Rebreather 15.0 10/01/20 08:00 96.4 63 20 145/63 (90) 94 10/01/20 08:00 15.0 100 10/01/20 08:00 51 10/01/20 04:00 97.0 61 20 132/65 (87) 10/01/20 04:00 15.0 100 10/01/20 04:00 52 10/01/20 00:00 97.2 63 20 134/64 (87) 92 10/01/20 00:00 15.0 100 10/01/20 00:00 61 09/30/20 21:00 Non-Rebreather 15.0 09/30/20 20:00 15.0 100 09/30/20 20:00 97.4 63 20 143/60 (87) 94 09/30/20 20:00 62 09/30/20 19:33 91 Non-Rebreather 15.0 100 Intake and Output 09/30/20 10/01/20 19:00 07:00 Intake Total 275 ml Output Total 1200 ml Balance -925 ml IV Total 275 ml Output Urine Total 1200 ml # Voids 3 Laboratory Tests Test 09/30/20 20:40 10/01/20 05:29 10/01/20 11:41 POC Whole Blood Glucose 342 MG/DL (74-106) H 197 MG/DL (74-106) H 295 MG/DL (74-106) H Objective HEENT: Atraumatic and normocephalic. Anicteric. Pupils are equal, round, and reactive to light and accommodation. Extraocular muscles intact. NECK: JVP is less than 5 cm. No carotid bruit. Carotid upstrokes 2+ bilaterally. CARDIOVASCULAR: Normal S1, S2. Regular rate and rhythm. No murmurs, gallops, or rubs. PMI is at fourth intercostal space in the midclavicular line. LUNGS: Bibasilar crackles. ABDOMEN: Soft, nontender, nondistended. No hepatosplenomegaly. Positive bowel sounds. EXTREMITIES: No evidence of edema, clubbing, or cyanosis. Mitch Eldridge MD Oct 01, 2020 17:56
--- NOTE | 2020-10-01 19:07 | NUR ---
NURSE HAND-OFF REPORT: Important Events on Shift:[nonrebreather ] Patient Status: [FULL CODE] Diet: [CCHO, low sodium] Pending Orders: [] Pending Results/Labs:[] Pending MD notification:[] Latest Vital Signs: Temperature 98.1 , Pulse 63 , B/P 126 /57 , Respiratory Rate 19 , O2 SAT 99 , Venturi Mask, O2 Flow Rate 15.0 . Vital Sign Comment: [] EKG Rhythm: SR W/ BBB Rhythm change?: N MD Notified?: N - MD Response: Latest Ross Fall Score: 45 Fall Risk: High Risk Safety Measures: Call light Within Reach, Bed Alarm Zone 1, Side Rails Side Rails x2, Bed position Low and Locked. Fall Precautions: Yellow Socks Yellow Gown Door Sign Patient Fall Education Report given to [Abdifatah STALLINGS].
--- NOTE | 2020-10-01 19:25 | NUR ---
NURSE NOTES: Report received from HAYLIE Stanton. Patient is awake on bed, alert and oriented x 4. On low sodium, CCHO (Medium), soft easy chew, instructed and amenable. gambling monitor is in place, shows sinus rhythm with BBB and no chest pain reported. Patient is on fall and aspiration precaution. Safety measures are in place, bed in lowest and locked position, side rails up x 2, call light button and bedside table within reach, instructed to call for any assistance needed. Will continue plan of care.
[2020-10-01 20:00] VITALS: BP 119/62
[2020-10-01] MEDS: Tamsulosin 0.4mg cap ORAL SCH (21:27)
[2020-10-01] MEDS: Atorvastatin 20mg tab ORAL SCH (21:27)
[2020-10-02] VITALS: BP 118/49
[2020-10-02 04:00] VITALS: BP 136/66
[2020-10-02 05:02] LABS: HEMATOCRIT 31.7 % (42.0-52.0); HEMOGLOBIN 11.4 G/DL (14.2-18.0); MEAN CORPUSCULAR VOLUME 82 FL (80-99); PLATELET COUNT 307 K/UL (150-450); RED BLOOD COUNT 3.88 M/UL (4.70-6.10); RED CELL DISTRIBUTION WIDTH 13.2 % (11.6-14.8)
[2020-10-02 05:29] LABS: CALCIUM 8.4 MG/DL (8.5-10.1); CREATININE 1.2 MG/DL (0.55-1.30); POTASSIUM 4.7 MMOL/L (3.5-5.1)
[2020-10-02] MEDS: NovoLOG Insulin Flexpen SUBQ SCH ×4 (05:52→21:18)
--- NOTE | 2020-10-02 07:33 | NUR ---
NURSE HAND-OFF REPORT: Important Events on Shift: Patient has been resting comfortably the whole shift, no desaturation noted on non-rebreather mask Patient Status: Patient is awake on bed in stable condition. Plan of care endorsed. Diet: Low sodium, CCHO (Medium) Pending Orders: none Pending Results/Labs:AM lab result Pending MD notification:none Latest Vital Signs: Temperature 97.3 , Pulse 59 , B/P 136 /66 , Respiratory Rate 23 , O2 SAT 97 , Venturi Mask, O2 Flow Rate 15.0 . Vital Sign Comment: stable EKG Rhythm: SR W/ BBB Rhythm change?: N MD Notified?: N - MD Response: Latest Ross Fall Score: 45 Fall Risk: High Risk Safety Measures: Call light Within Reach, Bed Alarm Zone 1, Side Rails Side Rails x2, Bed position Low and Locked. Fall Precautions: Yellow Socks Yellow Gown Door Sign Patient Fall Education Report given to HAYLIE Stanton.
[2020-10-02 08:00] VITALS: BP 139/69
--- NOTE | 2020-10-02 08:01 | NUR ---
NURSE NOTES: Report received from , RN. Patient is awake on bed, alert and oriented x 4. On low sodium, CCHO (Medium), soft easy chew, instructed and amenable. exchange administrator is in place. Patient noted to be on fall and aspiration precaution. RN instructed patient to use call light for assistance. Safety measures are in place. Bed locked and placed in lowest position. Side rails up x2, call light within reach. WIll continue to monitor
[2020-10-02] MEDS: Aspirin Baby 81mg ORAL SCH (08:50)
[2020-10-02] MEDS: Docusate 100mg cap ORAL SCH ×2 (08:51→17:13)
[2020-10-02] MEDS: Losartan 50mg tab ORAL SCH (08:51)
[2020-10-02] MEDS: Enoxaparin 30mg Inj SUBQ SCH (08:59)
--- NOTE | 2020-10-02 10:10 | Pulmonology Progress Note ---
Subjective ROS Limited/Unobtainable: Yes Interval Events: Transferred to telemetry unit Constitutional: Denies: fever HEENT: Repors: no symptoms Respiratory: Reports: no symptoms Cardiovascular: Reports: no symptoms Gastrointestinal/Abdominal: Reports: no symptoms Genitourinary: Reports: no symptoms Allergies: Coded Allergies: No Known Allergies (Unverified , 09/28/20) Objective Last 24 Hour Vital Signs Date Time Temp Pulse Resp B/P (MAP) Pulse Ox O2 Delivery O2 Flow Rate FiO2 10/02/20 09:01 94 Non-Rebreather 15.0 100 10/02/20 09:00 Non-Rebreather 15.0 10/02/20 08:51 139/69 10/02/20 08:50 74 139/69 10/02/20 08:00 54 10/02/20 08:00 15.0 100 10/02/20 08:00 97.5 74 24 139/69 (92) 95 10/02/20 04:00 15.0 100 10/02/20 04:00 97.3 59 23 136/66 (89) 97 10/02/20 04:00 60 10/02/20 00:00 97.0 55 24 118/49 (72) 97 10/02/20 00:00 50 10/02/20 00:00 15.0 100 10/01/20 21:00 Non-Rebreather 15.0 10/01/20 20:27 93 Non-Rebreather 15.0 100 10/01/20 20:00 15.0 100 10/01/20 20:00 97.8 58 21 119/62 (81) 92 10/01/20 20:00 56 10/01/20 16:00 15.0 100 10/01/20 16:00 63 10/01/20 15:54 98.1 60 19 126/57 (80) 99 10/01/20 12:00 69 10/01/20 12:00 15.0 100 10/01/20 12:00 97.6 64 18 138/68 (91) 94 Intake and Output 10/01/20 10/02/20 19:00 07:00 Intake Total 400 ml 600 ml Output Total 600 ml 450 ml Balance -200 ml 150 ml Intake Oral 400 ml 600 ml Output Urine Total 600 ml 450 ml # Voids 4 5 Objective Now on nonrebreather mask General Appearance: no acute distress HEENT: normocephalic Respiratory: chest wall non-tender, decreased breath sounds Cardiovascular: normal peripheral pulses, normal rate Abdomen: normal bowel sounds Laboratory Tests 10/01/20 11:41: POC Whole Blood Glucose 295H 10/01/20 21:29: POC Whole Blood Glucose 227H 10/02/20 03:35: White Blood Count 20.0H, Red Blood Count 3.88L, Hemoglobin 11.4L, Hematocrit 31.7L, Mean Corpuscular Volume 82, Mean Corpuscular Hemoglobin 29.5, Mean Corpuscular Hemoglobin Concent 36.0, Red Cell Distribution Width 13.2, Platelet Count 307, Mean Platelet Volume 8.1, Neutrophils (%) (Auto) , Lymphocytes (%) (Auto) , Monocytes (%) (Auto) , Eosinophils (%) (Auto) , Basophils (%) (Auto) , Differential Total Cells Counted 100, Neutrophils % (Manual) 87H, Lymphocytes % (Manual) 5L, Monocytes % (Manual) 8, Eosinophils % (Manual) 0, Basophils % (Manual) 0, Band Neutrophils 0, Platelet Estimate Adequate, Platelet Morphology Normal, Red Blood Cell Morphology Normal, Sodium Level 140, Potassium Level 4.7, Chloride Level 108H, Carbon Dioxide Level 23, Anion Gap 9, Blood Urea Nitrogen 38H, Creatinine 1.2, Estimat Glomerular Filtration Rate 58.1, Glucose Level 115H , Calcium Level 8.4L 10/02/20 05:47: POC Whole Blood Glucose [Pending] Current Medications Medications (Trade) Dose Ordered Sig/Tiffanie Route PRN Reason Start Time Stop Time Status Last Admin Dose Admin Acetaminophen (Tylenol) 650 mg Q4H PRN ORAL Mild Pain (Pain Scale 1-3)/ 09/28/20 23:45 10/28/20 23:44 Albuterol Sulfate (Proventil MDI) 2 puff Q6H PRN INH Shortness of Breath 09/28/20 23:45 12/27/20 23:44 Amlodipine Besylate (Norvasc) 10 mg DAILY ORAL 09/30/20 09:00 10/30/20 08:59 10/02/20 08:50 Aspirin (ASA) 81 mg DAILY ORAL 09/29/20 21:00 11/13/20 20:59 10/02/20 08:50 Atorvastatin Calcium (Lipitor) 40 mg BEDTIME ORAL 09/29/20 21:00 12/28/20 20:59 10/01/20 21:27 Azithromycin 500 mg/Dextrose 275 ml @ 275 mls/hr Q24HRS IV 09/29/20 14:00 10/04/20 13:59 10/01/20 13:16 Dexamethasone (Decadron) 6 mg DAILY ORAL 09/29/20 09:00 10/09/20 08:59 10/02/20 08:50 Dextrose (Dextrose 50%) 25 ml Q30M PRN IV Hypoglycemia 09/29/20 18:30 12/28/20 18:29 Dextrose (Dextrose 50%) 50 ml Q30M PRN IV Hypoglycemia 09/29/20 18:30 12/28/20 18:29 Docusate Sodium (Colace) 100 mg TWICE A DAY ORAL 09/30/20 18:00 10/30/20 17:59 10/02/20 08:51 Enoxaparin Sodium (Lovenox) 30 mg DAILY SUBQ 09/29/20 21:00 12/28/20 20:59 10/02/20 08:59 Finasteride (Proscar) 5 mg DAILY ORAL 09/30/20 09:00 12/29/20 08:59 10/02/20 08:51 Insulin Aspart (NovoLOG) BEFORE MEALS AND HS SUBQ 09/30/20 16:30 12/29/20 16:29 10/02/20 05:52 Losartan Potassium (Cozaar) 100 mg DAILY ORAL 09/30/20 09:00 10/30/20 08:59 10/02/20 08:51 Magnesium Hydroxide (Mom) 30 ml BIDPRN PRN ORAL Constipation 09/30/20 15:45 10/30/20 15:44 Tamsulosin HCl (Flomax) 0.4 mg BEDTIME ORAL 09/29/20 21:00 10/29/20 20:59 10/01/20 21:27 Assessment/Plan Assessment/Plan IMPRESSION: 1. COVID-19 pneumonia. 2. Hypertension. 3. Diabetes. 4. Respiratory failure with hypoxemia. DISCUSSION: Continue nonrebreather mask; saturating 94% Agree with the use of empiric antibiotics. He is also on Decadron orally. He may benefit from Remdesivir; will defer to ID DVT prophylaxis with subcu heparin. I will follow carefully. Clary Camp Omar Syed MD Oct 02, 2020 10:10
[2020-10-02 12:00] VITALS: BP 125/65
--- NOTE | 2020-10-02 12:03 | General Progress Note ---
Subjective Allergies: Coded Allergies: No Known Allergies (Unverified , 09/28/20) Subjective sob on high flow nrb mask Objective Last 24 Hour Vital Signs Date Time Temp Pulse Resp B/P (MAP) Pulse Ox O2 Delivery O2 Flow Rate FiO2 10/02/20 09:01 94 Non-Rebreather 15.0 100 10/02/20 09:00 Non-Rebreather 15.0 10/02/20 08:51 139/69 10/02/20 08:50 74 139/69 10/02/20 08:00 54 10/02/20 08:00 15.0 100 10/02/20 08:00 97.5 74 24 139/69 (92) 95 10/02/20 04:00 15.0 100 10/02/20 04:00 97.3 59 23 136/66 (89) 97 10/02/20 04:00 60 10/02/20 00:00 97.0 55 24 118/49 (72) 97 10/02/20 00:00 50 10/02/20 00:00 15.0 100 10/01/20 21:00 Non-Rebreather 15.0 10/01/20 20:27 93 Non-Rebreather 15.0 100 10/01/20 20:00 15.0 100 10/01/20 20:00 97.8 58 21 119/62 (81) 92 10/01/20 20:00 56 10/01/20 16:00 15.0 100 10/01/20 16:00 63 10/01/20 15:54 98.1 60 19 126/57 (80) 99 Intake and Output 10/01/20 10/02/20 19:00 07:00 Intake Total 400 ml 600 ml Output Total 600 ml 450 ml Balance -200 ml 150 ml Intake Oral 400 ml 600 ml Output Urine Total 600 ml 450 ml # Voids 4 5 Laboratory Tests 10/01/20 21:29: POC Whole Blood Glucose 227H 10/02/20 03:35: White Blood Count 20.0H, Red Blood Count 3.88L, Hemoglobin 11.4L, Hematocrit 31.7L, Mean Corpuscular Volume 82, Mean Corpuscular Hemoglobin 29.5, Mean Corpuscular Hemoglobin Concent 36.0, Red Cell Distribution Width 13.2, Platelet Count 307, Mean Platelet Volume 8.1, Neutrophils (%) (Auto) , Lymphocytes (%) (Auto) , Monocytes (%) (Auto) , Eosinophils (%) (Auto) , Basophils (%) (Auto) , Differential Total Cells Counted 100, Neutrophils % (Manual) 87H, Lymphocytes % (Manual) 5L, Monocytes % (Manual) 8, Eosinophils % (Manual) 0, Basophils % (Manual) 0, Band Neutrophils 0, Platelet Estimate Adequate, Platelet Morphology Normal, Red Blood Cell Morphology Normal, Sodium Level 140, Potassium Level 4.7, Chloride Level 108H, Carbon Dioxide Level 23, Anion Gap 9, Blood Urea Nitrogen 38H, Creatinine 1.2, Estimat Glomerular Filtration Rate 58.1, Glucose Level 115H , Calcium Level 8.4L 10/02/20 05:47: POC Whole Blood Glucose [Pending] 10/02/20 11:39: POC Whole Blood Glucose 140H Height (Feet): 5 Height (Inches): 4.00 Weight (Pounds): 143 General Appearance: alert EENT: PERRL/EOMI Neck: supple Cardiovascular: regular rhythm Respiratory/Chest: rhonchi - bilaterally Abdomen: soft, no organomegaly Extremities: normal range of motion Assessment/Plan Assessment/Plan: covid 19 pna arf anemia leucocytosis probable due to steroids admit to isolation decadron iv abx id and pulmo consult dw charge nurse Davis Perez MD Oct 02, 2020 12:03
[2020-10-02] MEDS: Azithromycin 500 MG in D5W 275 ML IV SCH (14:16)
[2020-10-02] MEDS ORDERED: Tubing IV Secondary IV ONE (15:41)
[2020-10-02 16:00] VITALS: BP 130/62
--- NOTE | 2020-10-02 19:19 | NUR ---
NURSE HAND-OFF REPORT: Important Events on Shift:[IV antibiotics] Patient Status: [FULL CODE] Diet: [CCHO, Low sodium] Pending Orders: [] Pending Results/Labs:[] Pending MD notification:[] Latest Vital Signs: Temperature 97.2 , Pulse 62 , B/P 130 /62 , Respiratory Rate 24 , O2 SAT 95 , Venturi Mask, O2 Flow Rate 15.0 . Vital Sign Comment: [] EKG Rhythm: SB W/ BBB Rhythm change?: N MD Notified?: N - MD Response: Latest Ross Fall Score: 45 Fall Risk: High Risk Safety Measures: Call light Within Reach, Bed Alarm Zone 1, Side Rails Side Rails x2, Bed position Low and Locked. Fall Precautions: Yellow Socks Yellow Gown Door Sign Patient Fall Education Report given to [Toribio STALLINGS].
--- NOTE | 2020-10-02 19:20 | NUR ---
NURSE NOTES: Got patient report from Maximino STALLINGS. Pt in stable condition. Pt is AOx4 Nepali speaking mainly. No s/s of pain or discomfort noted at this time. Pt denies any pain or discomfort. Pt is on 15L NC, sating 100% no respiratory distress noted. Pt has R hand 18g and L AC 18g both slocked. Pt is ambulatory weakness noted. Pt uses the urinal and is continent. Bed in lowest position and locked, side rails x3, Call light within reach. Continue to monitor.
[2020-10-02 20:00] VITALS: BP 131/67
[2020-10-02] MEDS: Tamsulosin 0.4mg cap ORAL SCH (21:06)
[2020-10-02] MEDS: Atorvastatin 20mg tab ORAL SCH (21:06)
--- NOTE | 2020-10-02 21:55 | Cardiology Progress Note ---
Assessment/Plan Assessment/Plan 1. Chest pain, most likely due to COVID-19 associated pneumonia, high D-dimer, continue Lovenox. 2. COVID-19 infection with possible pneumonia. Continue IV antibiotics. 3. Diabetes mellitus, continue aspirin and atorvastatin. 4. Hypertension, well controlled, continue amlodipine, flomax and losartan. Subjective Subjective Sinus rhythm at rate of 62. Objective Last 24 Hour Vital Signs Date Time Temp Pulse Resp B/P (MAP) Pulse Ox O2 Delivery O2 Flow Rate FiO2 10/02/20 16:00 97.2 58 24 130/62 (84) 95 10/02/20 16:00 15.0 100 10/02/20 16:00 62 10/02/20 12:00 71 10/02/20 12:00 15.0 100 10/02/20 12:00 97.7 58 22 125/65 (85) 96 10/02/20 09:01 94 Non-Rebreather 15.0 100 10/02/20 09:00 Non-Rebreather 15.0 10/02/20 08:51 139/69 10/02/20 08:50 74 139/69 10/02/20 08:00 54 10/02/20 08:00 15.0 100 10/02/20 08:00 97.5 74 24 139/69 (92) 95 10/02/20 04:00 15.0 100 10/02/20 04:00 97.3 59 23 136/66 (89) 97 10/02/20 04:00 60 10/02/20 00:00 97.0 55 24 118/49 (72) 97 10/02/20 00:00 50 10/02/20 00:00 15.0 100 Intake and Output 10/01/20 10/02/20 19:00 07:00 Intake Total 400 ml 600 ml Output Total 600 ml 450 ml Balance -200 ml 150 ml Intake Oral 400 ml 600 ml Output Urine Total 600 ml 450 ml # Voids 4 5 Laboratory Tests Test 10/02/20 03:35 10/02/20 05:47 10/02/20 11:39 10/02/20 16:39 White Blood Count 20.0 K/UL (4.8-10.8) H Red Blood Count 3.88 M/UL (4.70-6.10) L Hemoglobin 11.4 G/DL (14.2-18.0) L Hematocrit 31.7 % (42.0-52.0) L Mean Corpuscular Volume 82 FL (80-99) Mean Corpuscular Hemoglobin 29.5 PG (27.0-31.0) Mean Corpuscular Hemoglobin Concent 36.0 G/DL (32.0-36.0) Red Cell Distribution Width 13.2 % (11.6-14.8) Platelet Count 307 K/UL (150-450) Mean Platelet Volume 8.1 FL (6.5-10.1) Neutrophils (%) (Auto) % (45.0-75.0) Lymphocytes (%) (Auto) % (20.0-45.0) Monocytes (%) (Auto) % (1.0-10.0) Eosinophils (%) (Auto) % (0.0-3.0) Basophils (%) (Auto) % (0.0-2.0) Differential Total Cells Counted 100 Neutrophils % (Manual) 87 % (45-75) H Lymphocytes % (Manual) 5 % (20-45) L Monocytes % (Manual) 8 % (1-10) Eosinophils % (Manual) 0 % (0-3) Basophils % (Manual) 0 % (0-2) Band Neutrophils 0 % (0-8) Platelet Estimate Adequate Platelet Morphology Normal Red Blood Cell Morphology Normal Sodium Level 140 MMOL/L (136-145) Potassium Level 4.7 MMOL/L (3.5-5.1) Chloride Level 108 MMOL/L (98-107) H Carbon Dioxide Level 23 MMOL/L (21-32) Anion Gap 9 mmol/L (5-15) Blood Urea Nitrogen 38 mg/dL (7-18) H Creatinine 1.2 MG/DL (0.55-1.30) Estimat Glomerular Filtration Rate 58.1 mL/min (>60) Glucose Level 115 MG/DL (74-106) H Calcium Level 8.4 MG/DL (8.5-10.1) L POC Whole Blood Glucose Pending 140 MG/DL (74-106) H 299 MG/DL (74-106) H Objective HEENT: Atraumatic and normocephalic. Anicteric. Pupils are equal, round, and reactive to light and accommodation. Extraocular muscles intact. NECK: JVP is less than 5 cm. No carotid bruit. Carotid upstrokes 2+ bilaterally. CARDIOVASCULAR: Normal S1, S2. Regular rate and rhythm. No murmurs, gallops, or rubs. PMI is at fourth intercostal space in the midclavicular line. LUNGS: Bibasilar crackles. ABDOMEN: Soft, nontender, nondistended. No hepatosplenomegaly. Positive bowel sounds. EXTREMITIES: No evidence of edema, clubbing, or cyanosis. Mitch Eldridge MD Oct 02, 2020 21:55
[2020-10-03] VITALS: BP 138/69
[2020-10-03 04:00] VITALS: BP 134/61
[2020-10-03] MEDS: NovoLOG Insulin Flexpen SUBQ SCH ×4 (06:45→21:56)
--- NOTE | 2020-10-03 07:13 | NUR ---
NURSE NOTES: Got patient report from HAYLIE Bender. Pt is A/O x 3 and primarily Kyrgyz speaking. No SOB or acute distress. No pain noted. Pt is on 15L non rebreather with saturation of 100%. Pt has IV site RH 18g and LAC 18g which are both saline locked. Pt is ambulatory with weakness noted. Pt uses the urinal and is continent. Bed in lowest position and locked, side rails x3, Call light within reach. Continue to monitor.
--- NOTE | 2020-10-03 07:15 | NUR ---
NURSE HAND-OFF REPORT: Important Events on Shift:[] Patient Status: [STABLE] Diet: [LOW NA DIET CCHO MEDIUM] Pending Orders: [] Pending Results/Labs:[] Pending MD notification:[] Latest Vital Signs: Temperature 97.2 , Pulse 65 , B/P 134 /61 , Respiratory Rate 20 , O2 SAT 100 , Venturi Mask, O2 Flow Rate 15.0 . Vital Sign Comment: [] EKG Rhythm: SB w/BBB Rhythm change?: N MD Notified?: N - MD Response: Latest Ross Fall Score: 45 Fall Risk: High Risk Safety Measures: Call light Within Reach, Bed Alarm Zone 1, Side Rails Side Rails x2, Bed position Low and Locked. Fall Precautions: Yellow Socks Yellow Gown Door Sign Patient Fall Education Report given to [CLEVELAND STALLINGS].
[2020-10-03 07:56] VITALS: BP 136/63
[2020-10-03] MEDS: Losartan 50mg tab ORAL SCH (09:11)
[2020-10-03] MEDS: Aspirin Baby 81mg ORAL SCH (09:11)
[2020-10-03] MEDS: Docusate 100mg cap ORAL SCH ×2 (09:11→17:12)
[2020-10-03] MEDS: Enoxaparin 30mg Inj SUBQ SCH (09:12)
--- NOTE | 2020-10-03 10:35 | General Progress Note ---
Subjective Allergies: Coded Allergies: No Known Allergies (Unverified , 09/28/20) Subjective sob on high flow nrb mask Objective Last 24 Hour Vital Signs Date Time Temp Pulse Resp B/P (MAP) Pulse Ox O2 Delivery O2 Flow Rate FiO2 10/03/20 09:11 136/63 10/03/20 09:11 64 136/63 10/03/20 08:00 68 10/03/20 08:00 99 10/03/20 07:56 15.0 100 10/03/20 07:56 98.1 64 19 136/63 (87) 100 10/03/20 07:49 Non-Rebreather 15.0 10/03/20 04:00 97.2 65 20 134/61 (85) 100 10/03/20 04:00 55 10/03/20 04:00 15.0 100 10/03/20 00:00 97.2 62 21 138/69 (92) 100 10/03/20 00:00 57 10/02/20 21:00 Non-Rebreather 15.0 10/02/20 21:00 92 Non-Rebreather 15.0 100 10/02/20 20:00 15.0 100 10/02/20 20:00 97.7 60 22 131/67 (88) 96 10/02/20 20:00 56 10/02/20 16:00 97.2 58 24 130/62 (84) 95 10/02/20 16:00 15.0 100 10/02/20 16:00 62 10/02/20 12:00 71 10/02/20 12:00 15.0 100 10/02/20 12:00 97.7 58 22 125/65 (85) 96 Intake and Output 10/02/20 10/03/20 19:00 07:00 Intake Total 360 ml Output Total 400 ml 1000 ml Balance -40 ml -1000 ml Intake Oral 360 ml Output Urine Total 400 ml 1000 ml # Bowel Movements 1 Laboratory Tests 10/02/20 11:39: POC Whole Blood Glucose 140H 10/02/20 16:39: POC Whole Blood Glucose 299H Height (Feet): 5 Height (Inches): 4.00 Weight (Pounds): 143 General Appearance: alert, moderate distress EENT: PERRL/EOMI Neck: supple Cardiovascular: tachycardia Respiratory/Chest: rhonchi - bilaterally Abdomen: non tender, soft Extremities: non-tender Assessment/Plan Assessment/Plan: covid 19 pna arf anemia leucocytosis probable due to steroids admit to isolation decadron iv abx id and pulmo consult dw charge nurse Davis Perez MD Oct 03, 2020 10:35
--- NOTE | 2020-10-03 11:24 | Infectious Diseases Prog Note ---
Assessment/Plan Assessment/Plan antibiotics : azithromycin A 1. covid 19 pneumonia on 15 liters O2 with saturation 100 % 2. diabetes mellitus 3. hypertension 4. renal failure improving P 1. start remdesivir 2. d/c azithromycin 3. continue dexamethasone day 5 4. continue isolation Subjective ROS Limited/Unobtainable: Yes Allergies: Coded Allergies: No Known Allergies (Unverified , 09/28/20) Objective Last 24 Hour Vital Signs Date Time Temp Pulse Resp B/P (MAP) Pulse Ox O2 Delivery O2 Flow Rate FiO2 10/03/20 09:11 136/63 10/03/20 09:11 64 136/63 10/03/20 08:00 68 10/03/20 08:00 99 10/03/20 07:56 15.0 100 10/03/20 07:56 98.1 64 19 136/63 (87) 100 10/03/20 07:49 Non-Rebreather 15.0 10/03/20 04:00 97.2 65 20 134/61 (85) 100 10/03/20 04:00 55 10/03/20 04:00 15.0 100 10/03/20 00:00 97.2 62 21 138/69 (92) 100 10/03/20 00:00 57 10/02/20 21:00 Non-Rebreather 15.0 10/02/20 21:00 92 Non-Rebreather 15.0 100 10/02/20 20:00 15.0 100 10/02/20 20:00 97.7 60 22 131/67 (88) 96 10/02/20 20:00 56 10/02/20 16:00 97.2 58 24 130/62 (84) 95 10/02/20 16:00 15.0 100 10/02/20 16:00 62 10/02/20 12:00 71 10/02/20 12:00 15.0 100 10/02/20 12:00 97.7 58 22 125/65 (85) 96 Height (Feet): 5 Height (Inches): 4.00 Weight (Pounds): 143 Laboratory Tests Test 10/02/20 11:39 10/02/20 16:39 POC Whole Blood Glucose 140 MG/DL (74-106) H 299 MG/DL (74-106) H Current Medications Medications (Trade) Dose Ordered Sig/Tiffanie Route PRN Reason Start Time Stop Time Status Last Admin Dose Admin Acetaminophen (Tylenol) 650 mg Q4H PRN ORAL Mild Pain (Pain Scale 1-3)/ 09/28/20 23:45 10/28/20 23:44 Albuterol Sulfate (Proventil MDI) 2 puff Q6H PRN INH Shortness of Breath 09/28/20 23:45 12/27/20 23:44 Amlodipine Besylate (Norvasc) 10 mg DAILY ORAL 09/30/20 09:00 10/30/20 08:59 10/03/20 09:11 Aspirin (ASA) 81 mg DAILY ORAL 09/29/20 21:00 11/13/20 20:59 10/03/20 09:11 Atorvastatin Calcium (Lipitor) 40 mg BEDTIME ORAL 09/29/20 21:00 12/28/20 20:59 10/02/20 21:06 Azithromycin 500 mg/Dextrose 275 ml @ 275 mls/hr Q24HRS IV 09/29/20 14:00 10/04/20 13:59 10/02/20 14:16 Dexamethasone (Decadron) 6 mg DAILY ORAL 09/29/20 09:00 10/09/20 08:59 10/03/20 09:11 Dextrose (Dextrose 50%) 25 ml Q30M PRN IV Hypoglycemia 09/29/20 18:30 12/28/20 18:29 Dextrose (Dextrose 50%) 50 ml Q30M PRN IV Hypoglycemia 09/29/20 18:30 12/28/20 18:29 Docusate Sodium (Colace) 100 mg TWICE A DAY ORAL 09/30/20 18:00 10/30/20 17:59 10/03/20 09:11 Enoxaparin Sodium (Lovenox) 30 mg DAILY SUBQ 09/29/20 21:00 12/28/20 20:59 10/03/20 09:12 Finasteride (Proscar) 5 mg DAILY ORAL 09/30/20 09:00 12/29/20 08:59 10/03/20 09:11 Insulin Aspart (NovoLOG) BEFORE MEALS AND HS SUBQ 09/30/20 16:30 12/29/20 16:29 10/03/20 06:45 Losartan Potassium (Cozaar) 100 mg DAILY ORAL 09/30/20 09:00 10/30/20 08:59 10/03/20 09:11 Magnesium Hydroxide (Mom) 30 ml BIDPRN PRN ORAL Constipation 09/30/20 15:45 10/30/20 15:44 Tamsulosin HCl (Flomax) 0.4 mg BEDTIME ORAL 09/29/20 21:00 10/29/20 20:59 10/02/20 21:06 Ivy Muñoz MD Oct 03, 2020 11:24
[2020-10-03 12:00] VITALS: BP 130/73
--- NOTE | 2020-10-03 14:06 | Pulmonology Progress Note ---
Subjective ROS Limited/Unobtainable: Yes Interval Events: seen in tele Constitutional: Denies: fever HEENT: Repors: no symptoms Respiratory: Reports: no symptoms Cardiovascular: Reports: no symptoms Gastrointestinal/Abdominal: Reports: no symptoms Genitourinary: Reports: no symptoms Allergies: Coded Allergies: No Known Allergies (Unverified , 09/28/20) Objective Last 24 Hour Vital Signs Date Time Temp Pulse Resp B/P (MAP) Pulse Ox O2 Delivery O2 Flow Rate FiO2 10/03/20 12:00 97.9 87 20 130/73 (92) 100 10/03/20 12:00 63 10/03/20 12:00 15.0 100 10/03/20 09:11 136/63 10/03/20 09:11 64 136/63 10/03/20 08:34 93 Non-Rebreather 15.0 100 10/03/20 08:00 68 10/03/20 08:00 99 10/03/20 07:56 15.0 100 10/03/20 07:56 98.1 64 19 136/63 (87) 100 10/03/20 07:49 Non-Rebreather 15.0 10/03/20 04:00 97.2 65 20 134/61 (85) 100 10/03/20 04:00 55 10/03/20 04:00 15.0 100 10/03/20 00:00 97.2 62 21 138/69 (92) 100 10/03/20 00:00 57 10/02/20 21:00 Non-Rebreather 15.0 10/02/20 21:00 92 Non-Rebreather 15.0 100 10/02/20 20:00 15.0 100 10/02/20 20:00 97.7 60 22 131/67 (88) 96 10/02/20 20:00 56 10/02/20 16:00 97.2 58 24 130/62 (84) 95 10/02/20 16:00 15.0 100 10/02/20 16:00 62 Intake and Output 10/02/20 10/03/20 18:59 06:59 Intake Total 360 ml Output Total 400 ml 1000 ml Balance -40 ml -1000 ml Intake Oral 360 ml Output Urine Total 400 ml 1000 ml # Bowel Movements 1 Objective 10/03 saturating at 94% on 15L NRB General Appearance: no acute distress HEENT: normocephalic Respiratory: chest wall non-tender, decreased breath sounds Cardiovascular: normal peripheral pulses, normal rate Abdomen: normal bowel sounds Laboratory Tests 10/02/20 16:39: POC Whole Blood Glucose 299H 10/03/20 11:34: POC Whole Blood Glucose 119H Current Medications Medications (Trade) Dose Ordered Sig/Tiffanie Route PRN Reason Start Time Stop Time Status Last Admin Dose Admin Acetaminophen (Tylenol) 650 mg Q4H PRN ORAL Mild Pain (Pain Scale 1-3)/ 09/28/20 23:45 10/28/20 23:44 Albuterol Sulfate (Proventil MDI) 2 puff Q6H PRN INH Shortness of Breath 09/28/20 23:45 12/27/20 23:44 Amlodipine Besylate (Norvasc) 10 mg DAILY ORAL 09/30/20 09:00 10/30/20 08:59 10/03/20 09:11 Aspirin (ASA) 81 mg DAILY ORAL 09/29/20 21:00 11/13/20 20:59 10/03/20 09:11 Atorvastatin Calcium (Lipitor) 40 mg BEDTIME ORAL 09/29/20 21:00 12/28/20 20:59 10/02/20 21:06 Dexamethasone (Decadron) 6 mg DAILY ORAL 09/29/20 09:00 10/09/20 08:59 10/03/20 09:11 Dextrose (Dextrose 50%) 25 ml Q30M PRN IV Hypoglycemia 09/29/20 18:30 12/28/20 18:29 Dextrose (Dextrose 50%) 50 ml Q30M PRN IV Hypoglycemia 09/29/20 18:30 12/28/20 18:29 Docusate Sodium (Colace) 100 mg TWICE A DAY ORAL 09/30/20 18:00 10/30/20 17:59 10/03/20 09:11 Enoxaparin Sodium (Lovenox) 30 mg DAILY SUBQ 09/29/20 21:00 12/28/20 20:59 10/03/20 09:12 Finasteride (Proscar) 5 mg DAILY ORAL 09/30/20 09:00 12/29/20 08:59 10/03/20 09:11 Insulin Aspart (NovoLOG) BEFORE MEALS AND HS SUBQ 09/30/20 16:30 12/29/20 16:29 10/03/20 06:45 Losartan Potassium (Cozaar) 100 mg DAILY ORAL 09/30/20 09:00 10/30/20 08:59 10/03/20 09:11 Magnesium Hydroxide (Mom) 30 ml BIDPRN PRN ORAL Constipation 09/30/20 15:45 10/30/20 15:44 Remdesivir 100 mg/ Sodium Chloride 250 ml @ 250 mls/hr Q24H IV 10/04/20 15:00 10/07/20 15:59 Remdesivir 200 mg/ Sodium Chloride 250 ml @ 125 mls/hr ONCE IV 10/03/20 15:00 10/03/20 16:59 Tamsulosin HCl (Flomax) 0.4 mg BEDTIME ORAL 09/29/20 21:00 10/29/20 20:59 10/02/20 21:06 Assessment/Plan Assessment/Plan 1. COVID-19 pneumonia. - Continue nonrebreather mask; saturating at 94% - On remdesvir per ID - Azithromycin dc'd per ID - on Decadron 2. Hypertension. - on antihypertensives 3. Diabetes - on glucose-lowering agents. 4. Respiratory failure with hypoxemia. - currently saturating well on 94% DVT prophylaxis with subcu heparin. We will follow carefully. The care for this patient was discussed with my supervising physician Time spent for this case was approximately 31 minutes Scott Hernadez Oct 03, 2020 14:06
--- NOTE | 2020-10-03 14:45 | NUR ---
CASE MANAGEMENT:REVIEW 10/03/20 SI: COVID PNA 97.9 63 20 130/73 100% ON 15L/100% FIO2 WBC+20.0 IS: IV REMDESIVIR Q24 (10/11) COZAAR PO QD NORVASC PO QD ASA PO QD LOVENOX SQ QD FLOMAX PO QHS : TELEMETRY STATUS DCP: FROM HOME
[2020-10-03] MEDS ORDERED: Loading Dose:Remdesivir 200mg/NS 210ml IV SCH ×2 (15:00)
[2020-10-03 16:00] VITALS: BP 128/76
--- NOTE | 2020-10-03 19:23 | NUR ---
NURSE HAND-OFF REPORT: Important Events on Shift: Continue IV ATB and steriods Patient Status: Stable Diet: Low Sodium and CCHO Low Pending Orders: Pending Results/Labs: Pending MD notification: Latest Vital Signs: Temperature 98.2 , Pulse 70 , B/P 128 /76 , Respiratory Rate 20 , O2 SAT 100 , Venturi Mask, O2 Flow Rate 15.0 . Vital Sign Comment: EKG Rhythm: SR w BBB Rhythm change?: N MD Notified?: N - MD Response: Latest Ross Fall Score: 45 Fall Risk: High Risk Safety Measures: Call light Within Reach, Bed Alarm Zone 1, Side Rails Side Rails x2, Bed position Low and Locked. Fall Precautions: Yellow Socks Yellow Gown Door Sign Patient Fall Education Report given to Aditi.
--- NOTE | 2020-10-03 19:30 | NUR ---
NURSE NOTES: Received pt and report from HAYLIE Keenan. Observed pt resting in bed with both eyes closed; arousable to voice. Pt is A/Ox4. radiation monitor is in placed; pt is SR w/BBB. IV site intact, asymptomatic, and patent. Pt is on a NRB at 15L O2, 100% FiO2.; O2 saturation is 97%. Bed is in the lowest position and locked. Call light and bedside table is within reach. No signs/symptoms of acute distress noted. Will continue plan of care.
[2020-10-03 20:00] VITALS: BP 133/59
--- NOTE | 2020-10-03 21:05 | Cardiology Progress Note ---
Assessment/Plan Assessment/Plan 1. Chest pain, most likely due to COVID-19 associated pneumonia, high D-dimer, continue Lovenox. 2. COVID-19 infection with possible pneumonia. Continue IV antibiotics. 3. Diabetes mellitus, continue aspirin and atorvastatin. 4. Hypertension, well controlled, continue amlodipine, flomax and losartan. 5. SOREN, creat down to 1.2. Subjective Subjective Sinus rhythm at rate of 70. Objective Last 24 Hour Vital Signs Date Time Temp Pulse Resp B/P (MAP) Pulse Ox O2 Delivery O2 Flow Rate FiO2 10/03/20 19:25 97 Non-Rebreather 15.0 100 10/03/20 16:00 98.2 70 20 128/76 (93) 100 10/03/20 16:00 15.0 100 10/03/20 16:00 65 10/03/20 12:00 97.9 87 20 130/73 (92) 100 10/03/20 12:00 63 10/03/20 12:00 98.1 64 20 130/73 (92) 100 10/03/20 12:00 15.0 100 10/03/20 12:00 15.0 100 10/03/20 09:11 136/63 10/03/20 09:11 64 136/63 10/03/20 08:34 93 Non-Rebreather 15.0 100 10/03/20 08:00 68 10/03/20 08:00 99 10/03/20 07:56 15.0 100 10/03/20 07:56 98.1 64 19 136/63 (87) 100 10/03/20 07:49 Non-Rebreather 15.0 10/03/20 04:00 97.2 65 20 134/61 (85) 100 10/03/20 04:00 55 10/03/20 04:00 15.0 100 10/03/20 00:00 97.2 62 21 138/69 (92) 100 10/03/20 00:00 57 Intake and Output 10/02/20 10/03/20 19:00 07:00 Intake Total 360 ml Output Total 400 ml 1000 ml Balance -40 ml -1000 ml Intake Oral 360 ml Output Urine Total 400 ml 1000 ml # Bowel Movements 1 Laboratory Tests Test 10/03/20 11:34 10/03/20 16:33 10/03/20 20:37 POC Whole Blood Glucose 119 MG/DL (74-106) H 199 MG/DL (74-106) H Pending Objective HEENT: Atraumatic and normocephalic. Anicteric. Pupils are equal, round, and reactive to light and accommodation. Extraocular muscles intact. NECK: JVP is less than 5 cm. No carotid bruit. Carotid upstrokes 2+ bilaterally. CARDIOVASCULAR: Normal S1, S2. Regular rate and rhythm. No murmurs, gallops, or rubs. PMI is at fourth intercostal space in the midclavicular line. LUNGS: Bibasilar crackles. ABDOMEN: Soft, nontender, nondistended. No hepatosplenomegaly. Positive bowel sounds. EXTREMITIES: No evidence of edema, clubbing, or cyanosis. Mitch Eldridge MD Oct 03, 2020 21:05
[2020-10-03] MEDS: Tamsulosin 0.4mg cap ORAL SCH (21:54)
[2020-10-03] MEDS: Atorvastatin 20mg tab ORAL SCH (21:54)
[2020-10-04] VITALS: BP 130/59
[2020-10-04 04:00] VITALS: BP 121/61
[2020-10-04 05:29] LABS: HEMOGLOBIN 10.5 G/DL (14.2-18.0); MEAN CORPUSCULAR VOLUME 82 FL (80-99); PLATELET COUNT 323 K/UL (150-450); RED BLOOD COUNT 3.64 M/UL (4.70-6.10)
[2020-10-04 05:35] LABS: WHITE BLOOD COUNT 22.6 K/UL (4.8-10.8)
--- NOTE | 2020-10-04 05:35 | NUR ---
NURSE NOTES:Reported by David del cid, [facility] 22.6, endorsed to Raymon Griffiths who will call
[2020-10-04 06:05] LABS: ALANINE AMINOTRANSFERASE 44 U/L (12-78); ALBUMIN/GLOBULIN RATIO 0.6 (1.0-2.7); ALKALINE PHOSPHATASE 102 U/L (46-116); ANION GAP 6 mmol/L (5-15); ASPARTATE AMINO TRANSFERASE 30 U/L (15-37); BILIRUBIN,DIRECT 0.3 MG/DL (0.0-0.3); BILIRUBIN,TOTAL 0.5 MG/DL (0.2-1.0); BLOOD UREA NITROGEN 37 mg/dL (7-18); CALCIUM 7.9 MG/DL (8.5-10.1); CARBON DIOXIDE 25 MMOL/L (21-32); CHLORIDE 105 MMOL/L (98-107); CREATININE 1.1 MG/DL (0.55-1.30); POTASSIUM 4.1 MMOL/L (3.5-5.1); SODIUM 136 MMOL/L (136-145)
[2020-10-04] MEDS: NovoLOG Insulin Flexpen SUBQ SCH ×4 (06:13→21:28)
--- NOTE | 2020-10-04 07:52 | NUR ---
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 Notified Dr. Muñoz and dayshift nurse of elevated WBC of 22.6 Patient Status: Stable Diet: Low Sodium Pending Orders: 2D echo Pending Results/Labs: AM Labs Pending MD notification: N Latest Vital Signs: Temperature 97.7 , Pulse 73 , B/P 121 /61 , Respiratory Rate 22 , O2 SAT 95 , Venturi Mask, O2 Flow Rate 15.0 . EKG Rhythm: SR w/ BBB Rhythm change?: N MD Notified?: N - MD Response: Latest Ross Fall Score: 45 Fall Risk: High Risk Safety Measures: Call light Within Reach, Bed Alarm Zone 1, Side Rails Side Rails x2, Bed position Low and Locked. Fall Precautions: Patient Fall Education Report given to HAYLIE Núñez.
--- NOTE | 2020-10-04 07:53 | NUR ---
NURSE NOTES: Received patient in bed asleep. Non rebreather mask in place at 100%, not in acute distress. IV lines intact and patent. HOB elevated. Bed locked in low position. Call light within reach. Will continue plan of care.
[2020-10-04 08:00] VITALS: BP 129/53
[2020-10-04] MEDS: Enoxaparin 30mg Inj SUBQ SCH (09:14)
[2020-10-04] MEDS: Docusate 100mg cap ORAL SCH ×2 (09:15→17:16)
[2020-10-04] MEDS: Losartan 50mg tab ORAL SCH (09:16)
[2020-10-04] MEDS: Aspirin Baby 81mg ORAL SCH (09:16)
--- NOTE | 2020-10-04 09:55 | NUR ---
CASE MANAGEMENT:REVIEW 10/04/20 SI: COVID PNA. RESPIRATORY FAILURE 97.9 77 20 129/53 97% ON 15L/100% FIO2 WBC+22.6 IS: IV REMDESIVIR Q24 (11/11) DECADRON PO QD COZAAR PO QD NORVASC PO QD ASA PO QD LOVENOX SQ QD FLOMAX PO QHS : TELEMETRY STATUS DCP: FROM HOME
[2020-10-04] MEDS ORDERED: NS 275ml ONE (10:17)
--- NOTE | 2020-10-04 10:38 | Infectious Diseases Prog Note ---
Assessment/Plan Assessment/Plan IMPRESSION: COVID-19 pneumonia, Hypoxic respiratory failure, Renal failure improving Diabetes mellitus with hyperglycemia, Hypertension, Anemia, Lactic acidosis, Leukocytosis RECOMMENDATION: continue Dexamethasone. Continue Remdesivir Repeat CXR Case was D/W RN Subjective ROS Limited/Unobtainable: Yes Constitutional: Reports: no symptoms, other - feels better Respiratory: Reports: shortness of breath, productive cough Allergies: Coded Allergies: No Known Allergies (Unverified , 09/28/20) Objective Last 24 Hour Vital Signs Date Time Temp Pulse Resp B/P (MAP) Pulse Ox O2 Delivery O2 Flow Rate FiO2 10/04/20 09:17 77 129/53 10/04/20 09:16 129/53 10/04/20 08:09 97 Non-Rebreather 15.0 100 10/04/20 08:00 97.9 77 20 129/53 (78) 100 10/04/20 04:00 15.0 100 10/04/20 04:00 97.7 73 22 121/61 (81) 95 10/04/20 04:00 72 10/04/20 00:00 98.1 67 21 130/59 (82) 100 10/04/20 00:00 15.0 100 10/04/20 00:00 60 10/03/20 21:00 Non-Rebreather 15.0 10/03/20 20:00 97.7 69 21 133/59 (83) 96 10/03/20 20:00 70 10/03/20 20:00 15.0 100 10/03/20 19:25 97 Non-Rebreather 15.0 100 10/03/20 16:00 98.2 70 20 128/76 (93) 100 10/03/20 16:00 15.0 100 10/03/20 16:00 65 10/03/20 12:00 97.9 87 20 130/73 (92) 100 10/03/20 12:00 63 10/03/20 12:00 98.1 64 20 130/73 (92) 100 10/03/20 12:00 15.0 100 10/03/20 12:00 15.0 100 Height (Feet): 5 Height (Inches): 4.00 Weight (Pounds): 143 HEENT: mucous membranes moist Respiratory/Chest: other - oxygen by NRB mask Cardiovascular: normal rate Abdomen: soft, non tender Extremities: no edema Neurologic/Psychiatric: alert, responsive Laboratory Tests Test 10/03/20 11:34 10/03/20 16:33 10/03/20 20:37 10/04/20 04:00 POC Whole Blood Glucose 119 MG/DL (74-106) H 199 MG/DL (74-106) H Pending White Blood Count 22.6 K/UL (4.8-10.8) *H Red Blood Count 3.64 M/UL (4.70-6.10) L Hemoglobin 10.5 G/DL (14.2-18.0) L Hematocrit 30.0 % (42.0-52.0) L Mean Corpuscular Volume 82 FL (80-99) Mean Corpuscular Hemoglobin 28.7 PG (27.0-31.0) Mean Corpuscular Hemoglobin Concent 34.9 G/DL (32.0-36.0) Red Cell Distribution Width 13.0 % (11.6-14.8) Platelet Count 323 K/UL (150-450) Mean Platelet Volume 8.5 FL (6.5-10.1) Neutrophils (%) (Auto) % (45.0-75.0) Lymphocytes (%) (Auto) % (20.0-45.0) Monocytes (%) (Auto) % (1.0-10.0) Eosinophils (%) (Auto) % (0.0-3.0) Basophils (%) (Auto) % (0.0-2.0) Differential Total Cells Counted 100 Neutrophils % (Manual) 94 % (45-75) H Lymphocytes % (Manual) 2 % (20-45) L Monocytes % (Manual) 4 % (1-10) Eosinophils % (Manual) 0 % (0-3) Basophils % (Manual) 0 % (0-2) Band Neutrophils 0 % (0-8) Platelet Estimate Adequate Platelet Morphology Normal Red Blood Cell Morphology Normal Sodium Level 136 MMOL/L (136-145) Potassium Level 4.1 MMOL/L (3.5-5.1) Chloride Level 105 MMOL/L (98-107) Carbon Dioxide Level 25 MMOL/L (21-32) Anion Gap 6 mmol/L (5-15) Blood Urea Nitrogen 37 mg/dL (7-18) H Creatinine 1.1 MG/DL (0.55-1.30) Estimat Glomerular Filtration Rate > 60 mL/min (>60) Glucose Level 153 MG/DL (74-106) H Calcium Level 7.9 MG/DL (8.5-10.1) L Total Bilirubin 0.5 MG/DL (0.2-1.0) Direct Bilirubin 0.3 MG/DL (0.0-0.3) Aspartate Amino Transf (AST/SGOT) 30 U/L (15-37) Alanine Aminotransferase (ALT/SGPT) 44 U/L (12-78) Alkaline Phosphatase 102 U/L (46-116) Total Protein 5.6 G/DL (6.4-8.2) L Albumin 2.0 G/DL (3.4-5.0) L Globulin 3.6 g/dL Albumin/Globulin Ratio 0.6 (1.0-2.7) L Test 10/04/20 05:56 POC Whole Blood Glucose 190 MG/DL (74-106) H Current Medications Medications (Trade) Dose Ordered Sig/Tiffanie Route PRN Reason Start Time Stop Time Status Last Admin Dose Admin Acetaminophen (Tylenol) 650 mg Q4H PRN ORAL Mild Pain (Pain Scale 1-3)/ 09/28/20 23:45 10/28/20 23:44 Albuterol Sulfate (Proventil MDI) 2 puff Q6H PRN INH Shortness of Breath 09/28/20 23:45 12/27/20 23:44 Amlodipine Besylate (Norvasc) 10 mg DAILY ORAL 09/30/20 09:00 10/30/20 08:59 10/04/20 09:17 Aspirin (ASA) 81 mg DAILY ORAL 09/29/20 21:00 11/13/20 20:59 10/04/20 09:16 Atorvastatin Calcium (Lipitor) 40 mg BEDTIME ORAL 09/29/20 21:00 12/28/20 20:59 10/03/20 21:54 Dexamethasone (Decadron) 6 mg DAILY ORAL 09/29/20 09:00 10/09/20 08:59 10/04/20 09:15 Dextrose (Dextrose 50%) 25 ml Q30M PRN IV Hypoglycemia 09/29/20 18:30 12/28/20 18:29 Dextrose (Dextrose 50%) 50 ml Q30M PRN IV Hypoglycemia 09/29/20 18:30 12/28/20 18:29 Docusate Sodium (Colace) 100 mg TWICE A DAY ORAL 09/30/20 18:00 10/30/20 17:59 10/04/20 09:15 Enoxaparin Sodium (Lovenox) 30 mg DAILY SUBQ 09/29/20 21:00 12/28/20 20:59 10/04/20 09:14 Finasteride (Proscar) 5 mg DAILY ORAL 09/30/20 09:00 12/29/20 08:59 10/04/20 09:15 Insulin Aspart (NovoLOG) BEFORE MEALS AND HS SUBQ 09/30/20 16:30 12/29/20 16:29 10/04/20 06:13 Losartan Potassium (Cozaar) 100 mg DAILY ORAL 09/30/20 09:00 10/30/20 08:59 10/04/20 09:16 Magnesium Hydroxide (Mom) 30 ml BIDPRN PRN ORAL Constipation 09/30/20 15:45 10/30/20 15:44 Remdesivir 100 mg/ Sodium Chloride 250 ml @ 250 mls/hr Q24H IV 10/04/20 15:00 10/07/20 15:59 Tamsulosin HCl (Flomax) 0.4 mg BEDTIME ORAL 09/29/20 21:00 10/29/20 20:59 10/03/20 21:54 Cm Quintanilla MD Oct 04, 2020 10:38
--- NOTE | 2020-10-04 11:29 | NUR ---
RADIOLOGY DEPT., CHEST X-RAY DONE.-P.DYE
[2020-10-04 12:00] VITALS: BP 132/56
--- NOTE | 2020-10-04 13:03 | Diagnostic Imaging Report ---
Indication: Shortness of breath Technique: XRAY Chest 1v Comparison: 09/28/2020 Findings: Significant interval worsening of aeration compared to the exam of 09/28/2020 with development of interstitial opacification/edema, patchy perihilar opacities and some interstitial infiltrates in the periphery of the left lung. No significant pleural effusion. No pneumothorax. Heart size and osseous structures stable. Impression: Significant interval worsening aeration compared to 09/28/2020. Findings may be related to multifocal pneumonia although component of CHF/pulmonary edema can also be considered. Clinical correlation and follow-up recommended.
--- NOTE | 2020-10-04 14:08 | Pulmonology Progress Note ---
Subjective ROS Limited/Unobtainable: Yes Interval Events: seen in tele Constitutional: Reports: no symptoms, other - feels better HEENT: Repors: no symptoms Respiratory: Reports: no symptoms Cardiovascular: Reports: no symptoms Gastrointestinal/Abdominal: Reports: no symptoms Genitourinary: Reports: no symptoms Allergies: Coded Allergies: No Known Allergies (Unverified , 09/28/20) Objective Last 24 Hour Vital Signs Date Time Temp Pulse Resp B/P (MAP) Pulse Ox O2 Delivery O2 Flow Rate FiO2 10/04/20 12:00 97.7 76 21 132/56 (81) 98 10/04/20 09:17 77 129/53 10/04/20 09:16 129/53 10/04/20 09:00 Non-Rebreather 15.0 10/04/20 08:09 97 Non-Rebreather 15.0 100 10/04/20 08:00 84 10/04/20 08:00 97.9 77 20 129/53 (78) 100 10/04/20 08:00 15.0 100 10/04/20 04:00 15.0 100 10/04/20 04:00 97.7 73 22 121/61 (81) 95 10/04/20 04:00 72 10/04/20 00:00 98.1 67 21 130/59 (82) 100 10/04/20 00:00 15.0 100 10/04/20 00:00 60 10/03/20 21:00 Non-Rebreather 15.0 10/03/20 20:00 97.7 69 21 133/59 (83) 96 10/03/20 20:00 70 10/03/20 20:00 15.0 100 10/03/20 19:25 97 Non-Rebreather 15.0 100 10/03/20 16:00 98.2 70 20 128/76 (93) 100 10/03/20 16:00 15.0 100 10/03/20 16:00 65 Intake and Output 10/03/20 10/04/20 19:00 07:00 Intake Total 720 ml 350 ml Output Total 1200 ml Balance -480 ml 350 ml Intake Oral 720 ml 350 ml Output Urine Total 1200 ml # Voids 3 3 # Bowel Movements 2 Objective 10/04 no change; titrate down oxygen to venturi mask 10/03 saturating at 94% on 15L NRB General Appearance: no acute distress HEENT: normocephalic Respiratory: chest wall non-tender, decreased breath sounds Cardiovascular: normal peripheral pulses, normal rate Abdomen: normal bowel sounds Laboratory Tests 10/03/20 16:33: POC Whole Blood Glucose 199H 10/03/20 20:37: POC Whole Blood Glucose [Pending] 10/04/20 04:00: White Blood Count 22.6*H, Red Blood Count 3.64L, Hemoglobin 10.5L, Hematocrit 30.0L, Mean Corpuscular Volume 82, Mean Corpuscular Hemoglobin 28.7, Mean Corpuscular Hemoglobin Concent 34.9, Red Cell Distribution Width 13.0, Platelet Count 323, Mean Platelet Volume 8.5, Neutrophils (%) (Auto) , Lymphocytes (%) (Auto) , Monocytes (%) (Auto) , Eosinophils (%) (Auto) , Basophils (%) (Auto) , Differential Total Cells Counted 100, Neutrophils % (Manual) 94H, Lymphocytes % (Manual) 2L, Monocytes % (Manual) 4, Eosinophils % (Manual) 0, Basophils % (Manual) 0, Band Neutrophils 0, Platelet Estimate Adequate, Platelet Morphology Normal, Red Blood Cell Morphology Normal, Sodium Level 136, Potassium Level 4.1, Chloride Level 105, Carbon Dioxide Level 25, Anion Gap 6, Blood Urea Nitrogen 37H, Creatinine 1.1, Estimat Glomerular Filtration Rate > 60, Glucose Level 153H , Calcium Level 7.9L, Total Bilirubin 0.5, Direct Bilirubin 0.3, Aspartate Amino Transf (AST/SGOT) 30, Alanine Aminotransferase (ALT/SGPT) 44, Alkaline Phosphatase 102, Total Protein 5.6L, Albumin 2.0L, Globulin 3.6, Albumin/Globulin Ratio 0.6L 10/04/20 05:56: POC Whole Blood Glucose 190H 10/04/20 11:58: POC Whole Blood Glucose 191H Current Medications Medications (Trade) Dose Ordered Sig/Tiffanie Route PRN Reason Start Time Stop Time Status Last Admin Dose Admin Acetaminophen (Tylenol) 650 mg Q4H PRN ORAL Mild Pain (Pain Scale 1-3)/ 09/28/20 23:45 10/28/20 23:44 Albuterol Sulfate (Proventil MDI) 2 puff Q6H PRN INH Shortness of Breath 09/28/20 23:45 3/23/21 23:44 Amlodipine Besylate (Norvasc) 10 mg DAILY ORAL 09/30/20 09:00 10/30/20 08:59 10/04/20 09:17 Aspirin (ASA) 81 mg DAILY ORAL 09/29/20 21:00 11/13/20 20:59 10/04/20 09:16 Atorvastatin Calcium (Lipitor) 40 mg BEDTIME ORAL 09/29/20 21:00 12/28/20 20:59 10/03/20 21:54 Dexamethasone (Decadron) 6 mg DAILY ORAL 09/29/20 09:00 10/09/20 08:59 10/04/20 09:15 Dextrose (Dextrose 50%) 25 ml Q30M PRN IV Hypoglycemia 09/29/20 18:30 12/28/20 18:29 Dextrose (Dextrose 50%) 50 ml Q30M PRN IV Hypoglycemia 09/29/20 18:30 12/28/20 18:29 Docusate Sodium (Colace) 100 mg TWICE A DAY ORAL 09/30/20 18:00 10/30/20 17:59 10/04/20 09:15 Enoxaparin Sodium (Lovenox) 30 mg DAILY SUBQ 09/29/20 21:00 12/28/20 20:59 10/04/20 09:14 Finasteride (Proscar) 5 mg DAILY ORAL 09/30/20 09:00 12/29/20 08:59 10/04/20 09:15 Insulin Aspart (NovoLOG) BEFORE MEALS AND HS SUBQ 09/30/20 16:30 12/29/20 16:29 10/04/20 13:20 Losartan Potassium (Cozaar) 100 mg DAILY ORAL 09/30/20 09:00 10/30/20 08:59 10/04/20 09:16 Magnesium Hydroxide (Mom) 30 ml BIDPRN PRN ORAL Constipation 09/30/20 15:45 10/30/20 15:44 Remdesivir 100 mg/ Sodium Chloride 250 ml @ 250 mls/hr Q24H IV 10/04/20 15:00 10/07/20 15:59 Tamsulosin HCl (Flomax) 0.4 mg BEDTIME ORAL 09/29/20 21:00 10/29/20 20:59 10/03/20 21:54 Assessment/Plan Assessment/Plan 1. COVID-19 pneumonia. - saturating at 94% on 15L Venturi mask; titrate down to Venturi mask and keep SaO2 >94% - On remdesvir and dexamethasone - Azithromycin dc'd per ID - CXR 10/04 shows worsening aeration 2. Hypertension. - on antihypertensives 3. Diabetes - on glucose-lowering agents. 4. Respiratory failure with hypoxemia. - currently saturating well on 94% - will titrate down to Venturi mask DVT prophylaxis with subcu heparin. We will follow carefully. The care for this patient was discussed with my supervising physician Time spent for this case was approximately 31 minutes Scott Hernadez Oct 04, 2020 14:08
--- NOTE | 2020-10-04 15:06 | General Progress Note ---
Subjective Allergies: Coded Allergies: No Known Allergies (Unverified , 09/28/20) Subjective sob on high flow nrb mask Objective Last 24 Hour Vital Signs Date Time Temp Pulse Resp B/P (MAP) Pulse Ox O2 Delivery O2 Flow Rate FiO2 10/04/20 12:00 97.7 76 21 132/56 (81) 98 10/04/20 09:17 77 129/53 10/04/20 09:16 129/53 10/04/20 09:00 Non-Rebreather 15.0 10/04/20 08:09 97 Non-Rebreather 15.0 100 10/04/20 08:00 84 10/04/20 08:00 97.9 77 20 129/53 (78) 100 10/04/20 08:00 15.0 100 10/04/20 04:00 15.0 100 10/04/20 04:00 97.7 73 22 121/61 (81) 95 10/04/20 04:00 72 10/04/20 00:00 98.1 67 21 130/59 (82) 100 10/04/20 00:00 15.0 100 10/04/20 00:00 60 10/03/20 21:00 Non-Rebreather 15.0 10/03/20 20:00 97.7 69 21 133/59 (83) 96 10/03/20 20:00 70 10/03/20 20:00 15.0 100 10/03/20 19:25 97 Non-Rebreather 15.0 100 10/03/20 16:00 98.2 70 20 128/76 (93) 100 10/03/20 16:00 15.0 100 10/03/20 16:00 65 Intake and Output 10/03/20 10/04/20 19:00 07:00 Intake Total 720 ml 350 ml Output Total 1200 ml Balance -480 ml 350 ml Intake Oral 720 ml 350 ml Output Urine Total 1200 ml # Voids 3 3 # Bowel Movements 2 Laboratory Tests 10/03/20 16:33: POC Whole Blood Glucose 199H 10/03/20 20:37: POC Whole Blood Glucose [Pending] 10/04/20 04:00: White Blood Count 22.6*H, Red Blood Count 3.64L, Hemoglobin 10.5L, Hematocrit 30.0L, Mean Corpuscular Volume 82, Mean Corpuscular Hemoglobin 28.7, Mean Corpuscular Hemoglobin Concent 34.9, Red Cell Distribution Width 13.0, Platelet Count 323, Mean Platelet Volume 8.5, Neutrophils (%) (Auto) , Lymphocytes (%) (Auto) , Monocytes (%) (Auto) , Eosinophils (%) (Auto) , Basophils (%) (Auto) , Differential Total Cells Counted 100, Neutrophils % (Manual) 94H, Lymphocytes % (Manual) 2L, Monocytes % (Manual) 4, Eosinophils % (Manual) 0, Basophils % (Manual) 0, Band Neutrophils 0, Platelet Estimate Adequate, Platelet Morphology Normal, Red Blood Cell Morphology Normal, Sodium Level 136, Potassium Level 4.1, Chloride Level 105, Carbon Dioxide Level 25, Anion Gap 6, Blood Urea Nitrogen 37H, Creatinine 1.1, Estimat Glomerular Filtration Rate > 60, Glucose Level 153H , Calcium Level 7.9L, Total Bilirubin 0.5, Direct Bilirubin 0.3, Aspartate Amino Transf (AST/SGOT) 30, Alanine Aminotransferase (ALT/SGPT) 44, Alkaline Phosphatase 102, Total Protein 5.6L, Albumin 2.0L, Globulin 3.6, Albumin/Globulin Ratio 0.6L 10/04/20 05:56: POC Whole Blood Glucose 190H 10/04/20 11:58: POC Whole Blood Glucose 191H Height (Feet): 5 Height (Inches): 4.00 Weight (Pounds): 143 General Appearance: moderate distress EENT: PERRL/EOMI Neck: supple Cardiovascular: regular rhythm Respiratory/Chest: rhonchi - bilaterally Abdomen: non tender, soft Neurologic: potato picker II-XII grossly normal, oriented x 3 Skin: warm/dry Assessment/Plan Assessment/Plan: covid 19 pna arf anemia leucocytosis probable due to steroids admit to isolation decadron iv abx id and pulmo consult dw charge nurse Davis Perez MD Oct 04, 2020 15:06
[2020-10-04] MEDS: Maintenance Dose:Remdesivir 100mg/NS 230ml x 4 Doses IV SCH ×2 (15:21)
[2020-10-04 16:00] VITALS: BP 130/63
--- NOTE | 2020-10-04 19:15 | NUR ---
NURSE NOTES: Received report from HAYLIE Núñez. Pt in bed awake, A/Ox4. hall monitor is in place. Pt on a NRB at 15L O2, 100% FiO2. O2 saturation is 97%. Bed is in the lowest position and locked. Bed alarm on. Call light within reach. No signs/symptoms of acute distress noted. Will continue plan of care.
--- NOTE | 2020-10-04 19:45 | NUR ---
NURSE HAND-OFF REPORT: Important Events on Shift: Patient Status: alert, pleasant Diet: low Na, ccho med Pending Orders: 2D echo Pending Results/Labs: Pending MD notification: Latest Vital Signs: Temperature 97.2 , Pulse 86 , B/P 130 /63 , Respiratory Rate 20 , O2 SAT 96 , Venturi Mask, O2 Flow Rate 15.0 . Vital Sign Comment: EKG Rhythm: SR w/ 1st BBB Rhythm change?: N MD Notified?: N - MD Response: Latest Ross Fall Score: 45 Fall Risk: High Risk Safety Measures: Call light Within Reach, Bed Alarm Zone 1, Side Rails Side Rails x2, Bed position Low and Locked. Fall Precautions: Patient Fall Education Report given to Sruthi STALLINGS.
[2020-10-04 20:00] VITALS: BP 118/66
[2020-10-04] MEDS: Atorvastatin 20mg tab ORAL SCH (21:10)
[2020-10-04] MEDS: Tamsulosin 0.4mg cap ORAL SCH (21:10)
[2020-10-05] VITALS: BP 122/70
[2020-10-05 04:00] VITALS: BP 131/58
[2020-10-05] MEDS: NovoLOG Insulin Flexpen SUBQ SCH ×4 (06:30→21:43)
--- NOTE | 2020-10-05 07:18 | NUR ---
NURSE HAND-OFF REPORT: Important Events on Shift:[N/A] Patient Status: [STABLE] Diet: [LOW SODIUM CCHO MED] Pending Orders: [] Pending Results/Labs:[] Pending MD notification:[] Latest Vital Signs: Temperature 97.8 , Pulse 70 , B/P 131 /58 , Respiratory Rate 20 , O2 SAT 94 , Venturi Mask, O2 Flow Rate 15.0 . Vital Sign Comment: [] EKG Rhythm: SR w/ BBB Rhythm change?: N MD Notified?: N - MD Response: Latest Ross Fall Score: 45 Fall Risk: High Risk Safety Measures: Call light Within Reach, Bed Alarm Zone 1, Side Rails Side Rails x2, Bed position Low and Locked. Fall Precautions: Patient Fall Education Report given to [HAYLIE URBAN].
--- NOTE | 2020-10-05 07:26 | NUR ---
NURSE NOTES: Received report from HAYLIE Negro. Pt in bed awake, A/Ox4. groundwater monitoring technician is in place. Pt on a NRB at 15L O2, 100% FiO2. O2 saturation is 96%. Bed is in the lowest position and locked. Bed alarm on. Call light within reach. No signs/symptoms of acute distress noted.
[2020-10-05 07:34] LABS: HEMATOCRIT 28.4 % (42.0-52.0); HEMOGLOBIN 9.7 G/DL (14.2-18.0); MEAN CORPUSCULAR VOLUME 85 FL (80-99); PLATELET COUNT 298 K/UL (150-450); RED BLOOD COUNT 3.34 M/UL (4.70-6.10); RED CELL DISTRIBUTION WIDTH 13.3 % (11.6-14.8)
--- NOTE | 2020-10-05 07:36 | NUR ---
RD ASSESSMENT & RECOMMENDATIONS SEE CARE ACTIVITY FOR COMPLETE ASSESSMENT DAILY ESTIMATED NEEDS: Needs based on pulmonary, DM/ 61.7kg 25-30 kcals/kg 5284-9138 total kcals 1-1.5 g protein/kg 61-92 g total protein 25-30 mL/kg 9420-1908 total fluid mLs NUTRITION DIAGNOSIS: Altered nutrition related lab values R/T h/o DM, on steroidal med as evidenced by A1C 7.0, elev BGs and POC glu ([phone]), pt on Decadron. CURRENT DIET:LOW NA, CCHO MED/ soft easy chew PO DIET RECOMMENDATIONS: LOW NA + CCHO LOW, double protein portions/ texture as tolerated ADDITIONAL RECOMMENDATIONS: * Calibrated bedscale wt * Monitor BGs closely w/ Decadron, consider adding long acting insulin for improved BG control * Monitor for continued good PO tolerance and fair-good PO intake
[2020-10-05 07:37] LABS: WHITE BLOOD COUNT 24.2 K/UL (4.8-10.8)
[2020-10-05 07:45] LABS: ALBUMIN/GLOBULIN RATIO 0.6 (1.0-2.7); BILIRUBIN,DIRECT 0.3 MG/DL (0.0-0.3); BILIRUBIN,TOTAL 0.5 MG/DL (0.2-1.0); CALCIUM 8.3 MG/DL (8.5-10.1); CREATININE 1.3 MG/DL (0.55-1.30); POTASSIUM 4.3 MMOL/L (3.5-5.1)
--- NOTE | 2020-10-05 07:50 | NUR ---
NURSE NOTES: Left Vm for Dr. Muñoz Re critical WBC value this AM
[2020-10-05 08:00] VITALS: BP 125/43
[2020-10-05] MEDS: Enoxaparin 40mg Inj SUBQ SCH (10:03)
[2020-10-05] MEDS: Losartan 50mg tab ORAL SCH (10:04)
[2020-10-05] MEDS: Aspirin Baby 81mg ORAL SCH (10:05)
[2020-10-05] MEDS: Docusate 100mg cap ORAL SCH ×2 (10:05→17:26)
--- NOTE | 2020-10-05 10:44 | NUR ---
NURSE NOTES: Rechecked BP since Diastolic is low. Meds given at BP of 132/67, please disregard the 125/43
--- NOTE | 2020-10-05 11:20 | Infectious Diseases Prog Note ---
Assessment/Plan Assessment/Plan antibiotics : azithromycin A 1. covid 19 pneumonia on 15 liters O2 with saturation 98 % 2. diabetes mellitus 3. hypertension 4. renal failure improving P 1. continue remdesivir day 3 2. continue dexamethasone day 7 3. continue isolation Subjective ROS Limited/Unobtainable: Yes Allergies: Coded Allergies: No Known Allergies (Unverified , 09/28/20) Objective Last 24 Hour Vital Signs Date Time Temp Pulse Resp B/P (MAP) Pulse Ox O2 Delivery O2 Flow Rate FiO2 10/05/20 10:05 69 125/43 10/05/20 10:04 125/43 10/05/20 09:00 Non-Rebreather 15.0 10/05/20 08:00 97.7 74 24 125/43 (70) 95 10/05/20 08:00 69 10/05/20 04:00 15.0 100 10/05/20 04:00 71 10/05/20 04:00 97.8 70 20 131/58 (82) 94 10/05/20 00:00 97.3 67 20 122/70 (87) 95 10/05/20 00:00 66 10/05/20 00:00 15.0 100 10/04/20 21:00 Non-Rebreather 15.0 10/04/20 20:00 97.9 78 20 118/66 (83) 95 10/04/20 20:00 15.0 100 10/04/20 19:39 96 Non-Rebreather 15.0 100 10/04/20 16:00 97.2 85 20 130/63 (85) 96 10/04/20 16:00 15.0 100 10/04/20 16:00 86 10/04/20 12:00 69 10/04/20 12:00 15.0 100 10/04/20 12:00 97.7 76 21 132/56 (81) 98 Height (Feet): 5 Height (Inches): 4.00 Weight (Pounds): 143 Laboratory Tests Test 10/04/20 11:58 10/04/20 16:33 10/04/20 21:24 10/05/20 05:12 POC Whole Blood Glucose 191 MG/DL (74-106) H 346 MG/DL (74-106) H 315 MG/DL (74-106) H 119 MG/DL (74-106) H Test 10/05/20 07:00 White Blood Count 24.2 K/UL (4.8-10.8) *H Red Blood Count 3.34 M/UL (4.70-6.10) L Hemoglobin 9.7 G/DL (14.2-18.0) L Hematocrit 28.4 % (42.0-52.0) L Mean Corpuscular Volume 85 FL (80-99) Mean Corpuscular Hemoglobin 29.0 PG (27.0-31.0) Mean Corpuscular Hemoglobin Concent 34.1 G/DL (32.0-36.0) Red Cell Distribution Width 13.3 % (11.6-14.8) Platelet Count 298 K/UL (150-450) Mean Platelet Volume 9.0 FL (6.5-10.1) Neutrophils (%) (Auto) % (45.0-75.0) Lymphocytes (%) (Auto) % (20.0-45.0) Monocytes (%) (Auto) % (1.0-10.0) Eosinophils (%) (Auto) % (0.0-3.0) Basophils (%) (Auto) % (0.0-2.0) Differential Total Cells Counted 100 Neutrophils % (Manual) 93 % (45-75) H Lymphocytes % (Manual) 3 % (20-45) L Monocytes % (Manual) 3 % (1-10) Eosinophils % (Manual) 1 % (0-3) Basophils % (Manual) 0 % (0-2) Band Neutrophils 0 % (0-8) Platelet Estimate Adequate Platelet Morphology Normal Hypochromasia 1+ Sodium Level 138 MMOL/L (136-145) Potassium Level 4.3 MMOL/L (3.5-5.1) Chloride Level 106 MMOL/L (98-107) Carbon Dioxide Level 26 MMOL/L (21-32) Anion Gap 6 mmol/L (5-15) Blood Urea Nitrogen 55 mg/dL (7-18) H Creatinine 1.3 MG/DL (0.55-1.30) Estimat Glomerular Filtration Rate 53.0 mL/min (>60) Glucose Level 121 MG/DL (74-106) H Calcium Level 8.3 MG/DL (8.5-10.1) L Total Bilirubin 0.5 MG/DL (0.2-1.0) Direct Bilirubin 0.3 MG/DL (0.0-0.3) Aspartate Amino Transf (AST/SGOT) 28 U/L (15-37) Alanine Aminotransferase (ALT/SGPT) 39 U/L (12-78) Alkaline Phosphatase 99 U/L (46-116) Total Protein 5.4 G/DL (6.4-8.2) L Albumin 2.0 G/DL (3.4-5.0) L Globulin 3.4 g/dL Albumin/Globulin Ratio 0.6 (1.0-2.7) L Current Medications Medications (Trade) Dose Ordered Sig/Tiffanie Route PRN Reason Start Time Stop Time Status Last Admin Dose Admin Acetaminophen (Tylenol) 650 mg Q4H PRN ORAL Mild Pain (Pain Scale 1-3)/ 09/28/20 23:45 10/28/20 23:44 Albuterol Sulfate (Proventil MDI) 2 puff Q6H PRN INH Shortness of Breath 09/28/20 23:45 12/27/20 23:44 Amlodipine Besylate (Norvasc) 10 mg DAILY ORAL 09/30/20 09:00 10/30/20 08:59 10/05/20 10:05 Aspirin (ASA) 81 mg DAILY ORAL 09/29/20 21:00 11/13/20 20:59 10/05/20 10:05 Atorvastatin Calcium (Lipitor) 40 mg BEDTIME ORAL 09/29/20 21:00 12/28/20 20:59 10/04/20 21:10 Dexamethasone (Decadron) 6 mg DAILY ORAL 09/29/20 09:00 10/09/20 08:59 10/05/20 10:04 Dextrose (Dextrose 50%) 25 ml Q30M PRN IV Hypoglycemia 09/29/20 18:30 12/28/20 18:29 Dextrose (Dextrose 50%) 50 ml Q30M PRN IV Hypoglycemia 09/29/20 18:30 12/28/20 18:29 Docusate Sodium (Colace) 100 mg TWICE A DAY ORAL 09/30/20 18:00 10/30/20 17:59 10/05/20 10:05 Enoxaparin Sodium (Lovenox) 40 mg DAILY SUBQ 10/05/20 09:53 01/03/21 09:52 10/05/20 10:03 Finasteride (Proscar) 5 mg DAILY ORAL 09/30/20 09:00 12/29/20 08:59 10/05/20 10:04 Insulin Aspart (NovoLOG) BEFORE MEALS AND HS SUBQ 09/30/20 16:30 12/29/20 16:29 10/04/20 21:28 Losartan Potassium (Cozaar) 100 mg DAILY ORAL 09/30/20 09:00 10/30/20 08:59 10/05/20 10:04 Magnesium Hydroxide (Mom) 30 ml BIDPRN PRN ORAL Constipation 09/30/20 15:45 10/30/20 15:44 Remdesivir 100 mg/ Sodium Chloride 250 ml @ 250 mls/hr Q24H IV 10/04/20 15:00 10/07/20 15:59 10/04/20 15:21 Tamsulosin HCl (Flomax) 0.4 mg BEDTIME ORAL 09/29/20 21:00 10/29/20 20:59 10/04/20 21:10 Ivy Muñoz MD Oct 05, 2020 11:20
[2020-10-05 12:00] VITALS: BP 116/57
--- NOTE | 2020-10-05 14:16 | General Progress Note ---
Subjective Allergies: Coded Allergies: No Known Allergies (Unverified , 09/28/20) Subjective sob on bipap Objective Last 24 Hour Vital Signs Date Time Temp Pulse Resp B/P (MAP) Pulse Ox O2 Delivery O2 Flow Rate FiO2 10/05/20 12:00 80 10/05/20 12:00 97.3 87 24 116/57 (76) 95 10/05/20 10:05 69 125/43 10/05/20 10:04 125/43 10/05/20 09:00 Non-Rebreather 15.0 10/05/20 08:52 95 Non-Rebreather 15.0 100 10/05/20 08:00 97.7 74 24 125/43 (70) 95 10/05/20 08:00 69 10/05/20 04:00 15.0 100 10/05/20 04:00 71 10/05/20 04:00 97.8 70 20 131/58 (82) 94 10/05/20 00:00 97.3 67 20 122/70 (87) 95 10/05/20 00:00 66 10/05/20 00:00 15.0 100 10/04/20 21:00 Non-Rebreather 15.0 10/04/20 20:00 97.9 78 20 118/66 (83) 95 10/04/20 20:00 15.0 100 10/04/20 19:39 96 Non-Rebreather 15.0 100 10/04/20 16:00 97.2 85 20 130/63 (85) 96 10/04/20 16:00 15.0 100 10/04/20 16:00 86 Intake and Output 10/04/20 10/05/20 19:00 07:00 Intake Total 400 ml Output Total 500 ml 850 ml Balance -500 ml -450 ml Intake Oral 400 ml Output Urine Total 500 ml 850 ml Laboratory Tests 10/04/20 16:33: POC Whole Blood Glucose 346H 10/04/20 21:24: POC Whole Blood Glucose 315H 10/05/20 05:12: POC Whole Blood Glucose 119H 10/05/20 07:00: White Blood Count 24.2*H, Red Blood Count 3.34L, Hemoglobin 9.7L, Hematocrit 28.4L, Mean Corpuscular Volume 85, Mean Corpuscular Hemoglobin 29.0, Mean Corpuscular Hemoglobin Concent 34.1, Red Cell Distribution Width 13.3, Platelet Count 298, Mean Platelet Volume 9.0, Neutrophils (%) (Auto) , Lymphocytes (%) (Auto) , Monocytes (%) (Auto) , Eosinophils (%) (Auto) , Basophils (%) (Auto) , Differential Total Cells Counted 100, Neutrophils % (Manual) 93H, Lymphocytes % (Manual) 3L, Monocytes % (Manual) 3, Eosinophils % (Manual) 1, Basophils % (Manual) 0, Band Neutrophils 0, Platelet Estimate Adequate, Platelet Morphology Normal, Hypochromasia 1+, Sodium Level 138, Potassium Level 4.3, Chloride Level 106, Carbon Dioxide Level 26, Anion Gap 6, Blood Urea Nitrogen 55H, Creatinine 1.3, Estimat Glomerular Filtration Rate 53.0, Glucose Level 121H, Calcium Level 8.3L, Total Bilirubin 0.5, Direct Bilirubin 0.3, Aspartate Amino Transf (AST/SGOT) 28, Alanine Aminotransferase (ALT/SGPT) 39, Alkaline Phosphatase 99, Total Protein 5.4L, Albumin 2.0L, Globulin 3.4, Albumin/Globulin Ratio 0.6L Height (Feet): 5 Height (Inches): 4.00 Weight (Pounds): 143 General Appearance: alert EENT: PERRL/EOMI Neck: supple Cardiovascular: regular rhythm Respiratory/Chest: rhonchi - bilaterally Abdomen: non tender, soft Assessment/Plan Assessment/Plan: covid 19 pna arf anemia leucocytosis probable due to steroids admit to isolation decadron iv abx id and pulmo consult dw charge nurse aDvis Perez MD Oct 05, 2020 14:16
[2020-10-05] MEDS: Maintenance Dose:Remdesivir 100mg/NS 230ml x 4 Doses IV SCH ×2 (14:29)
--- NOTE | 2020-10-05 14:57 | Pulmonology Progress Note ---
Subjective ROS Limited/Unobtainable: Yes Interval Events: seen in tele Constitutional: Reports: no symptoms HEENT: Repors: no symptoms Respiratory: Reports: no symptoms Cardiovascular: Reports: no symptoms Gastrointestinal/Abdominal: Reports: no symptoms Genitourinary: Reports: no symptoms Allergies: Coded Allergies: No Known Allergies (Unverified , 09/28/20) Objective Last 24 Hour Vital Signs Date Time Temp Pulse Resp B/P (MAP) Pulse Ox O2 Delivery O2 Flow Rate FiO2 10/05/20 12:00 80 10/05/20 12:00 97.3 87 24 116/57 (76) 95 10/05/20 10:05 69 125/43 10/05/20 10:04 125/43 10/05/20 09:00 Non-Rebreather 15.0 10/05/20 08:52 95 Non-Rebreather 15.0 100 10/05/20 08:00 97.7 74 24 125/43 (70) 95 10/05/20 08:00 69 10/05/20 04:00 15.0 100 10/05/20 04:00 71 10/05/20 04:00 97.8 70 20 131/58 (82) 94 10/05/20 00:00 97.3 67 20 122/70 (87) 95 10/05/20 00:00 66 10/05/20 00:00 15.0 100 10/04/20 21:00 Non-Rebreather 15.0 10/04/20 20:00 97.9 78 20 118/66 (83) 95 10/04/20 20:00 15.0 100 10/04/20 19:39 96 Non-Rebreather 15.0 100 10/04/20 16:00 97.2 85 20 130/63 (85) 96 10/04/20 16:00 15.0 100 10/04/20 16:00 86 Intake and Output 10/04/20 10/05/20 19:00 07:00 Intake Total 400 ml Output Total 500 ml 850 ml Balance -500 ml -450 ml Intake Oral 400 ml Output Urine Total 500 ml 850 ml Objective 10/05 pt did not tolerate Venturi mask; still on 15L NRB saturating at 94-97% 10/04 no change; titrate down oxygen to venturi mask 10/03 saturating at 94% on 15L NRB General Appearance: no acute distress HEENT: normocephalic Respiratory: chest wall non-tender, decreased breath sounds Cardiovascular: normal peripheral pulses, normal rate Abdomen: normal bowel sounds Laboratory Tests 10/04/20 16:33: POC Whole Blood Glucose 346H 10/04/20 21:24: POC Whole Blood Glucose 315H 10/05/20 05:12: POC Whole Blood Glucose 119H 10/05/20 07:00: White Blood Count 24.2*H, Red Blood Count 3.34L, Hemoglobin 9.7L, Hematocrit 28.4L, Mean Corpuscular Volume 85, Mean Corpuscular Hemoglobin 29.0, Mean Corpuscular Hemoglobin Concent 34.1, Red Cell Distribution Width 13.3, Platelet Count 298, Mean Platelet Volume 9.0, Neutrophils (%) (Auto) , Lymphocytes (%) (Auto) , Monocytes (%) (Auto) , Eosinophils (%) (Auto) , Basophils (%) (Auto) , Differential Total Cells Counted 100, Neutrophils % (Manual) 93H, Lymphocytes % (Manual) 3L, Monocytes % (Manual) 3, Eosinophils % (Manual) 1, Basophils % (Manual) 0, Band Neutrophils 0, Platelet Estimate Adequate, Platelet Morphology Normal, Hypochromasia 1+, Sodium Level 138, Potassium Level 4.3, Chloride Level 106, Carbon Dioxide Level 26, Anion Gap 6, Blood Urea Nitrogen 55H, Creatinine 1.3, Estimat Glomerular Filtration Rate 53.0, Glucose Level 121H, Calcium Level 8.3L, Total Bilirubin 0.5, Direct Bilirubin 0.3, Aspartate Amino Transf (AST/SGOT) 28, Alanine Aminotransferase (ALT/SGPT) 39, Alkaline Phosphatase 99, Total Protein 5.4L, Albumin 2.0L, Globulin 3.4, Albumin/Globulin Ratio 0.6L Current Medications Medications (Trade) Dose Ordered Sig/Tiffanie Route PRN Reason Start Time Stop Time Status Last Admin Dose Admin Acetaminophen (Tylenol) 650 mg Q4H PRN ORAL Mild Pain (Pain Scale 1-3)/ 09/28/20 23:45 10/28/20 23:44 Albuterol Sulfate (Proventil MDI) 2 puff Q6H PRN INH Shortness of Breath 09/28/20 23:45 12/27/20 23:44 Amlodipine Besylate (Norvasc) 10 mg DAILY ORAL 09/30/20 09:00 10/30/20 08:59 10/05/20 10:05 Aspirin (ASA) 81 mg DAILY ORAL 09/29/20 21:00 11/13/20 20:59 10/05/20 10:05 Atorvastatin Calcium (Lipitor) 40 mg BEDTIME ORAL 09/29/20 21:00 12/28/20 20:59 10/04/20 21:10 Dexamethasone (Decadron) 6 mg DAILY ORAL 09/29/20 09:00 10/09/20 08:59 10/05/20 10:04 Dextrose (Dextrose 50%) 25 ml Q30M PRN IV Hypoglycemia 09/29/20 18:30 12/28/20 18:29 Dextrose (Dextrose 50%) 50 ml Q30M PRN IV Hypoglycemia 09/29/20 18:30 12/28/20 18:29 Docusate Sodium (Colace) 100 mg TWICE A DAY ORAL 09/30/20 18:00 10/30/20 17:59 10/05/20 10:05 Enoxaparin Sodium (Lovenox) 40 mg DAILY SUBQ 10/05/20 09:53 01/03/21 09:52 10/05/20 10:03 Finasteride (Proscar) 5 mg DAILY ORAL 09/30/20 09:00 12/29/20 08:59 10/05/20 10:04 Insulin Aspart (NovoLOG) BEFORE MEALS AND HS SUBQ 09/30/20 16:30 12/29/20 16:29 10/05/20 11:44 Losartan Potassium (Cozaar) 100 mg DAILY ORAL 09/30/20 09:00 10/30/20 08:59 10/05/20 10:04 Magnesium Hydroxide (Mom) 30 ml BIDPRN PRN ORAL Constipation 09/30/20 15:45 10/30/20 15:44 Remdesivir 100 mg/ Sodium Chloride 250 ml @ 250 mls/hr Q24H IV 10/04/20 15:00 10/07/20 15:59 10/05/20 14:29 Tamsulosin HCl (Flomax) 0.4 mg BEDTIME ORAL 09/29/20 21:00 10/29/20 20:59 10/04/20 21:10 Assessment/Plan Assessment/Plan 1. COVID-19 pneumonia. - saturating at 94-97% on 15L Venturi mask; desaturated on 6L Venturi mask - On remdesvir and dexamethasone - Azithromycin dc'd per ID - CXR 10/04 shows worsening aeration 2. Hypertension. - on antihypertensives 3. Diabetes - on glucose-lowering agents. 4. Respiratory failure with hypoxemia. - currently saturating well on 94% - will attempt titrating down to Venturi mask again 5. Leukocytosis - ID following DVT prophylaxis with subcu heparin. We will follow carefully. The care for this patient was discussed with my supervising physician Time spent for this case was approximately 31 minutes Scott Hernadez Oct 05, 2020 14:57
--- NOTE | 2020-10-05 15:23 | NUR ---
CASE MANAGEMENT:REVIEW 10/05/20 SI: COVID PNA. RESPIRATORY FAILURE 97.3 87 24 116/57 95% ON 15L/100% FIO2 WBC+24.2 BUN+55 IS: IV REMDESIVIR Q24 (12/09) DECADRON PO QD COZAAR PO QD NORVASC PO QD ASA PO QD LOVENOX SQ QD FLOMAX PO QHS : TELEMETRY STATUS DCP: FROM HOME
[2020-10-05 16:00] VITALS: BP 117/51
--- NOTE | 2020-10-05 18:52 | NUR ---
NURSE HAND-OFF REPORT: Important Events on Shift:[No remarkable events] Patient Status: [full code; stable] Diet: [low Na CCHO M] Pending Orders: [] Pending Results/Labs:[] Pending MD notification:[] Latest Vital Signs: Temperature 97.2 , Pulse 65 , B/P 117 /51 , Respiratory Rate 22 , O2 SAT 96 , Venturi Mask, O2 Flow Rate 15.0 . Vital Sign Comment: [] EKG Rhythm: Sinus Rhythm Rhythm change?: N MD Notified?: N - MD Response: Latest Ross Fall Score: 45 Fall Risk: High Risk Safety Measures: Call light Within Reach, Bed Alarm Zone 1, Side Rails Side Rails x2, Bed position Low and Locked. Fall Precautions: Patient Fall Education Report given to [Pending RN assignment]. Addendum: 10/05/20 at 1917 by Devi Macdonald RN Report given to Sruthi STALLINGS
--- NOTE | 2020-10-05 19:30 | NUR ---
NURSE NOTES: Received report from HAYLIE Quinonez. Pt in bed awake, A/Ox4. 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 Pt on a NRB at 15L O2, 100% FiO2. O2 saturation is 95%. Bed is in the lowest position and locked. Bed alarm on. Call light within reach. No signs/symptoms of acute distress noted. Will continue plan of care.
[2020-10-05 20:00] VITALS: BP 125/60
[2020-10-05] MEDS: Atorvastatin 20mg tab ORAL SCH (21:17)
[2020-10-05] MEDS: Tamsulosin 0.4mg cap ORAL SCH (21:17)
--- NOTE | 2020-10-05 23:14 | Cardiology Progress Note ---
Assessment/Plan Assessment/Plan 1. Chest pain, most likely due to COVID-19 associated pneumonia, high D-dimer, 2D echo with normal LVEF, continue Lovenox. 2. COVID-19 infection with possible pneumonia. Continue IV antibiotics. 3. Diabetes mellitus, continue aspirin and atorvastatin. 4. Hypertension, well controlled, continue amlodipine, flomax and losartan. 5. SOREN, creat at 1.3. Subjective Subjective Sinus rhythm at rate of 88. On non-rebreather mask. Objective Last 24 Hour Vital Signs Date Time Temp Pulse Resp B/P (MAP) Pulse Ox O2 Delivery O2 Flow Rate FiO2 10/05/20 20:00 97.9 88 22 125/60 (81) 97 10/05/20 20:00 79 10/05/20 19:21 92 Non-Rebreather 15.0 100 10/05/20 16:00 97.2 72 22 117/51 (73) 96 10/05/20 16:00 65 10/05/20 12:00 80 10/05/20 12:00 97.3 87 24 116/57 (76) 95 10/05/20 10:05 69 125/43 10/05/20 10:04 125/43 10/05/20 09:00 Non-Rebreather 15.0 10/05/20 08:52 95 Non-Rebreather 15.0 100 10/05/20 08:00 97.7 74 24 125/43 (70) 95 10/05/20 08:00 69 10/05/20 04:00 15.0 100 10/05/20 04:00 71 10/05/20 04:00 97.8 70 20 131/58 (82) 94 10/05/20 00:00 97.3 67 20 122/70 (87) 95 10/05/20 00:00 66 10/05/20 00:00 15.0 100 Intake and Output 10/04/20 10/05/20 19:00 07:00 Intake Total 400 ml Output Total 500 ml 850 ml Balance -500 ml -450 ml Intake Oral 400 ml Output Urine Total 500 ml 850 ml 2D Echo: Normal LV systolic function, RVSP 11 mmHg Laboratory Tests Test 10/05/20 05:12 10/05/20 07:00 10/05/20 20:24 POC Whole Blood Glucose 119 MG/DL (74-106) H 223 MG/DL (74-106) H White Blood Count 24.2 K/UL (4.8-10.8) *H Red Blood Count 3.34 M/UL (4.70-6.10) L Hemoglobin 9.7 G/DL (14.2-18.0) L Hematocrit 28.4 % (42.0-52.0) L Mean Corpuscular Volume 85 FL (80-99) Mean Corpuscular Hemoglobin 29.0 PG (27.0-31.0) Mean Corpuscular Hemoglobin Concent 34.1 G/DL (32.0-36.0) Red Cell Distribution Width 13.3 % (11.6-14.8) Platelet Count 298 K/UL (150-450) Mean Platelet Volume 9.0 FL (6.5-10.1) Neutrophils (%) (Auto) % (45.0-75.0) Lymphocytes (%) (Auto) % (20.0-45.0) Monocytes (%) (Auto) % (1.0-10.0) Eosinophils (%) (Auto) % (0.0-3.0) Basophils (%) (Auto) % (0.0-2.0) Differential Total Cells Counted 100 Neutrophils % (Manual) 93 % (45-75) H Lymphocytes % (Manual) 3 % (20-45) L Monocytes % (Manual) 3 % (1-10) Eosinophils % (Manual) 1 % (0-3) Basophils % (Manual) 0 % (0-2) Band Neutrophils 0 % (0-8) Platelet Estimate Adequate Platelet Morphology Normal Hypochromasia 1+ Sodium Level 138 MMOL/L (136-145) Potassium Level 4.3 MMOL/L (3.5-5.1) Chloride Level 106 MMOL/L (98-107) Carbon Dioxide Level 26 MMOL/L (21-32) Anion Gap 6 mmol/L (5-15) Blood Urea Nitrogen 55 mg/dL (7-18) H Creatinine 1.3 MG/DL (0.55-1.30) Estimat Glomerular Filtration Rate 53.0 mL/min (>60) Glucose Level 121 MG/DL (74-106) H Calcium Level 8.3 MG/DL (8.5-10.1) L Total Bilirubin 0.5 MG/DL (0.2-1.0) Direct Bilirubin 0.3 MG/DL (0.0-0.3) Aspartate Amino Transf (AST/SGOT) 28 U/L (15-37) Alanine Aminotransferase (ALT/SGPT) 39 U/L (12-78) Alkaline Phosphatase 99 U/L (46-116) Total Protein 5.4 G/DL (6.4-8.2) L Albumin 2.0 G/DL (3.4-5.0) L Globulin 3.4 g/dL Albumin/Globulin Ratio 0.6 (1.0-2.7) L Objective HEENT: Atraumatic and normocephalic. Anicteric. Pupils are equal, round, and reactive to light and accommodation. Extraocular muscles intact. NECK: JVP is less than 5 cm. No carotid bruit. Carotid upstrokes 2+ bilaterally. CARDIOVASCULAR: Normal S1, S2. Regular rate and rhythm. No murmurs, gallops, or rubs. PMI is at fourth intercostal space in the midclavicular line. LUNGS: Bibasilar crackles. ABDOMEN: Soft, nontender, nondistended. No hepatosplenomegaly. Positive bowel sounds. EXTREMITIES: No evidence of edema, clubbing, or cyanosis. Mitch Eldridge MD Oct 05, 2020 23:14
[2020-10-06] VITALS (12 sets, daily range): BP systolic 45–128; BP diastolic 21–65
[2020-10-06] MEDS: NovoLOG Insulin Flexpen SUBQ SCH ×4 (06:08→21:00)
--- NOTE | 2020-10-06 07:05 | NUR ---
NURSE NOTES: Received report from HAYLIE Negro. Pt in bed awake, A/Ox4. equipment monitor phototypesetting is in place. Pt on a NRB at 15L O2, 100% FiO2. O2 saturation is 96%. Bed is in the lowest position and locked. Bed alarm on. Call light within reach. No signs/symptoms of acute distress noted.
--- NOTE | 2020-10-06 07:26 | NUR ---
NURSE HAND-OFF REPORT: Important Events on Shift:[n/a] Patient Status: [stable/full code] Diet: [jevity 1.2 @ 30cc/hr] Pending Orders: [] Pending Results/Labs:[] Pending MD notification:[] Latest Vital Signs: Temperature 97.5 , Pulse 78 , B/P 125 /57 , Respiratory Rate 22 , O2 SAT 96 , Venturi Mask, O2 Flow Rate 15.0 . Vital Sign Comment: [] EKG Rhythm: SR w/ BBB Rhythm change?: N MD Notified?: N - MD Response: Latest Ross Fall Score: 45 Fall Risk: High Risk Safety Measures: Call light Within Reach, Bed Alarm Zone 1, Side Rails Side Rails x2, Bed position Low and Locked. Fall Precautions: Patient Fall Education Report given to [HAYLIE Quinonez].
[2020-10-06] MEDS: Aspirin Baby 81mg ORAL SCH (08:21)
[2020-10-06] MEDS: Losartan 50mg tab ORAL SCH (08:22)
[2020-10-06] MEDS: Docusate 100mg cap ORAL SCH ×2 (08:22→17:26)
[2020-10-06] MEDS: Enoxaparin 40mg Inj SUBQ SCH (08:24)
--- NOTE | 2020-10-06 08:54 | NUR ---
ASE MANAGEMENT:REVIEW 10/06/20 SI: COVID PNA. RESPIRATORY FAILURE 98.1 80 22 128/65 96% ON 15L/100% NRB WBC+24.2 (YESTERDAY) IS: IV REMDESIVIR Q24 (01/09) DECADRON PO QD COZAAR PO QD NORVASC PO QD ASA PO QD LOVENOX SQ QD FLOMAX PO QHS : TELEMETRY STATUS DCP: FROM HOME PLAN: SUPPORTIVE CARE WEAN OXYGEN WHEN ABLE
[2020-10-06] MEDS ORDERED: Enoxaparin 40mg Inj SUBQ SCH (09:00)
[2020-10-06 09:40] LABS: HEMATOCRIT 25.4 % (42.0-52.0); HEMOGLOBIN 8.5 G/DL (14.2-18.0); MEAN CORPUSCULAR VOLUME 86 FL (80-99); PLATELET COUNT 262 K/UL (150-450); RED BLOOD COUNT 2.93 M/UL (4.70-6.10); RED CELL DISTRIBUTION WIDTH 13.7 % (11.6-14.8)
[2020-10-06 09:50] LABS: WHITE BLOOD COUNT 24.3 K/UL (4.8-10.8)
[2020-10-06 10:10] LABS: ALBUMIN 1.9 G/DL (3.4-5.0); ALBUMIN/GLOBULIN RATIO 0.6 (1.0-2.7); BILIRUBIN,DIRECT 0.3 MG/DL (0.0-0.3); BILIRUBIN,TOTAL 0.5 MG/DL (0.2-1.0); CALCIUM 7.6 MG/DL (8.5-10.1); CREATININE 1.4 MG/DL (0.55-1.30); POTASSIUM 4.7 MMOL/L (3.5-5.1)
--- NOTE | 2020-10-06 14:00 | NUR ---
NURSE NOTES: Dr. Chairez infomred of critical ABG's and that pt saturation in mid 80's on non rebreather. Per , redraw ABG. Stat ordered placed.
--- NOTE | 2020-10-06 14:46 | General Progress Note ---
Subjective Allergies: Coded Allergies: No Known Allergies (Unverified , 09/28/20) Subjective more sob on bipap abg Objective Last 24 Hour Vital Signs Date Time Temp Pulse Resp B/P (MAP) Pulse Ox O2 Delivery O2 Flow Rate FiO2 10/06/20 12:00 98 10/06/20 12:00 97.9 99 22 128/55 (79) 96 10/06/20 10:21 92 Non-Rebreather 15.0 100 10/06/20 09:00 Non-Rebreather 15.0 10/06/20 08:22 128/65 10/06/20 08:22 80 128/65 10/06/20 08:00 98.1 80 22 128/65 (86) 96 10/06/20 08:00 77 10/06/20 04:00 76 10/06/20 04:00 97.5 78 22 125/57 (79) 96 10/06/20 00:00 97.0 84 22 117/54 (75) 95 10/06/20 00:00 75 10/05/20 21:00 Non-Rebreather 15.0 10/05/20 20:00 97.9 88 22 125/60 (81) 97 10/05/20 20:00 79 10/05/20 19:21 92 Non-Rebreather 15.0 100 10/05/20 16:00 97.2 72 22 117/51 (73) 96 10/05/20 16:00 65 Intake and Output 10/05/20 10/06/20 19:00 07:00 Intake Total 350 ml Output Total 700 ml 600 ml Balance -700 ml -250 ml Intake Oral 350 ml Output Urine Total 700 ml 600 ml # Voids 3 # Bowel Movements 1 Laboratory Tests 10/05/20 20:24: POC Whole Blood Glucose 223H 10/06/20 09:00: White Blood Count 24.3*H, Red Blood Count 2.93L, Hemoglobin 8.5L, Hematocrit 25. 4L, Mean Corpuscular Volume 86, Mean Corpuscular Hemoglobin 28.9, Mean Corpuscular Hemoglobin Concent 33.4, Red Cell Distribution Width 13.7, Platelet Count 262, Mean Platelet Volume 7.6, Neutrophils (%) (Auto) , Lymphocytes (%) (Auto) , Monocytes (%) (Auto) , Eosinophils (%) (Auto) , Basophils (%) (Auto) , Differential Total Cells Counted 100, Neutrophils % (Manual) 95H, Lymphocytes % (Manual) 1L, Monocytes % (Manual) 4, Eosinophils % (Manual) 0, Basophils % (Manual) 0, Band Neutrophils 0, Platelet Estimate Adequate, Platelet Morphology Normal, Hypochromasia 1+, Sodium Level 135L, Potassium Level 4.7, Chloride Level 104, Carbon Dioxide Level 23, Anion Gap 8, Blood Urea Nitrogen 78H, Creatinine 1.4H, Estimat Glomerular Filtration Rate 48.6, Glucose Level 263#H, Calcium Level 7.6L, Total Bilirubin 0.5, Direct Bilirubin 0.3, Aspartate Amino Transf (AST/SGOT) 29, Alanine Aminotransferase (ALT/SGPT) 34, Alkaline Phosphatase 106, Total Protein 5.1L, Albumin 1.9L, Globulin 3.2, Albumin/Globulin Ratio 0.6L Height (Feet): 5 Height (Inches): 4.00 Weight (Pounds): 143 General Appearance: severe distress EENT: PERRL/EOMI Neck: supple Cardiovascular: tachycardia Respiratory/Chest: rhonchi - bilaterally Abdomen: non tender, soft Extremities: non-tender Assessment/Plan Assessment/Plan: covid 19 more sob abg pna arf worse check lbs anemia leucocytosis probable due to steroids admit to isolation decadron iv abx id and pulmo consult dw charge nurse Davis Perez MD Oct 06, 2020 14:46
--- NOTE | 2020-10-06 14:53 | Pulmonology Progress Note ---
Subjective ROS Limited/Unobtainable: Yes Interval Events: seen in tele Constitutional: Reports: no symptoms HEENT: Repors: no symptoms Respiratory: Reports: no symptoms Cardiovascular: Reports: no symptoms Gastrointestinal/Abdominal: Reports: no symptoms Genitourinary: Reports: no symptoms Allergies: Coded Allergies: No Known Allergies (Unverified , 09/28/20) Objective Last 24 Hour Vital Signs Date Time Temp Pulse Resp B/P (MAP) Pulse Ox O2 Delivery O2 Flow Rate FiO2 10/06/20 12:00 98 10/06/20 12:00 97.9 99 22 128/55 (79) 96 10/06/20 10:21 92 Non-Rebreather 15.0 100 10/06/20 09:00 Non-Rebreather 15.0 10/06/20 08:22 128/65 10/06/20 08:22 80 128/65 10/06/20 08:00 98.1 80 22 128/65 (86) 96 10/06/20 08:00 77 10/06/20 04:00 76 10/06/20 04:00 97.5 78 22 125/57 (79) 96 10/06/20 00:00 97.0 84 22 117/54 (75) 95 10/06/20 00:00 75 10/05/20 21:00 Non-Rebreather 15.0 10/05/20 20:00 97.9 88 22 125/60 (81) 97 10/05/20 20:00 79 10/05/20 19:21 92 Non-Rebreather 15.0 100 10/05/20 16:00 97.2 72 22 117/51 (73) 96 10/05/20 16:00 65 Intake and Output 10/05/20 10/06/20 19:00 07:00 Intake Total 350 ml Output Total 700 ml 600 ml Balance -700 ml -250 ml Intake Oral 350 ml Output Urine Total 700 ml 600 ml # Voids 3 # Bowel Movements 1 Objective Now on nonrebreather mask General Appearance: no acute distress HEENT: normocephalic Respiratory: chest wall non-tender, decreased breath sounds Cardiovascular: normal peripheral pulses, normal rate Abdomen: normal bowel sounds Laboratory Tests 10/05/20 20:24: POC Whole Blood Glucose 223H 10/06/20 09:00: White Blood Count 24.3*H, Red Blood Count 2.93L, Hemoglobin 8.5L, Hematocrit 25.4L, Mean Corpuscular Volume 86, Mean Corpuscular Hemoglobin 28.9, Mean Corpuscular Hemoglobin Concent 33.4, Red Cell Distribution Width 13.7, Platelet Count 262, Mean Platelet Volume 7.6, Neutrophils (%) (Auto) , Lymphocytes (%) (Auto) , Monocytes (%) (Auto) , Eosinophils (%) (Auto) , Basophils (%) (Auto) , Differential Total Cells Counted 100, Neutrophils % (Manual) 95H, Lymphocytes % (Manual) 1L, Monocytes % (Manual) 4, Eosinophils % (Manual) 0, Basophils % (Manual) 0, Band Neutrophils 0, Platelet Estimate Adequate, Platelet Morphology Normal, Hypochromasia 1+, Sodium Level 135L, Potassium Level 4.7, Chloride Level 104, Carbon Dioxide Level 23, Anion Gap 8, Blood Urea Nitrogen 78H, Creatinine 1.4H, Estimat Glomerular Filtration Rate 48.6, Glucose Level 263#H, Calcium Level 7.6L, Total Bilirubin 0.5, Direct Bilirubin 0.3, Aspartate Amino Transf (AST/SGOT) 29, Alanine Aminotransferase (ALT/SGPT) 34, Alkaline Phosphatase 106, Total Protein 5.1L, Albumin 1.9L, Globulin 3.2, Albumin/Globulin Ratio 0.6L 10/06/20 14:33: Arterial Blood pH 7.182*L, Arterial Blood Partial Pressure CO2 32.3L, Arterial Blood Partial Pressure O2 57.0L, Arterial Blood HCO3 11.8*L, Arterial Blood Oxygen Saturation 80.7*L, Arterial Blood Base Excess -15.2*L, Pratik Test Positive Current Medications Medications (Trade) Dose Ordered Sig/Tiffanie Route PRN Reason Start Time Stop Time Status Last Admin Dose Admin Acetaminophen (Tylenol) 650 mg Q4H PRN ORAL Mild Pain (Pain Scale 1-3)/ 09/28/20 23:45 10/28/20 23:44 Albuterol Sulfate (Proventil MDI) 2 puff Q6H PRN INH Shortness of Breath 09/28/20 23:45 12/27/20 23:44 Amlodipine Besylate (Norvasc) 10 mg DAILY ORAL 09/30/20 09:00 10/30/20 08:59 10/06/20 08:22 Aspirin (ASA) 81 mg DAILY ORAL 09/29/20 21:00 11/13/20 20:59 10/06/20 08:21 Atorvastatin Calcium (Lipitor) 40 mg BEDTIME ORAL 09/29/20 21:00 12/28/20 20:59 10/05/20 21:17 Dexamethasone (Decadron) 6 mg DAILY ORAL 09/29/20 09:00 10/09/20 08:59 10/06/20 08:22 Dextrose (Dextrose 50%) 25 ml Q30M PRN IV Hypoglycemia 09/29/20 18:30 12/28/20 18:29 Dextrose (Dextrose 50%) 50 ml Q30M PRN IV Hypoglycemia 09/29/20 18:30 12/28/20 18:29 Docusate Sodium (Colace) 100 mg TWICE A DAY ORAL 09/30/20 18:00 10/30/20 17:59 10/06/20 08:22 Enoxaparin Sodium (Lovenox) 40 mg DAILY SUBQ 10/05/20 09:53 01/03/21 09:52 10/06/20 08:24 Finasteride (Proscar) 5 mg DAILY ORAL 09/30/20 09:00 12/29/20 08:59 10/06/20 08:22 Insulin Aspart (NovoLOG) BEFORE MEALS AND HS SUBQ 09/30/20 16:30 12/29/20 16:29 10/06/20 12:24 Losartan Potassium (Cozaar) 100 mg DAILY ORAL 09/30/20 09:00 10/30/20 08:59 10/06/20 08:22 Magnesium Hydroxide (Mom) 30 ml BIDPRN PRN ORAL Constipation 09/30/20 15:45 10/30/20 15:44 Remdesivir 100 mg/ Sodium Chloride 250 ml @ 250 mls/hr Q24H IV 10/04/20 15:00 10/07/20 15:59 10/05/20 14:29 Sodium Chloride 1,000 ml @ 75 mls/hr [id number] IV 10/06/20 15:00 11/05/20 14:59 Tamsulosin HCl (Flomax) 0.4 mg BEDTIME ORAL 09/29/20 21:00 10/29/20 20:59 10/05/20 21:17 Assessment/Plan Assessment/Plan IMPRESSION: 1. COVID-19 pneumonia. 2. Hypertension. 3. Diabetes. 4. Respiratory failure with hypoxemia. DISCUSSION: Continue nonrebreather mask; saturating 94-98% Agree with the use of empiric antibiotics. He is also on Decadron orally. On Remdesivir; DVT prophylaxis with subcu heparin. I will follow carefully. Clary Camp Omar Syed MD Oct 06, 2020 14:53
[2020-10-06] MEDS: Maintenance Dose:Remdesivir 100mg/NS 230ml x 4 Doses IV SCH ×2 (14:55)
--- NOTE | 2020-10-06 16:26 | Infectious Diseases Prog Note ---
Assessment/Plan Assessment/Plan IMPRESSION: COVID-19 pneumonia, Hypoxic respiratory failure, Renal failure improving Diabetes mellitus with hyperglycemia, Hypertension, Anemia, Lactic acidosis, Leukocytosis Anemia, ? GI bleeding Leukocytosis RECOMMENDATION: continue Dexamethasone. Continue Remdesivir Stool OB Start on Rocephin Case was D/W RN Subjective ROS Limited/Unobtainable: Yes Respiratory: Reports: shortness of breath Gastrointestinal/Abdominal: Reports: other - black tarry stools Allergies: Coded Allergies: No Known Allergies (Unverified , 09/28/20) Objective Last 24 Hour Vital Signs Date Time Temp Pulse Resp B/P (MAP) Pulse Ox O2 Delivery O2 Flow Rate FiO2 10/06/20 12:00 98 10/06/20 12:00 97.9 99 22 128/55 (79) 96 10/06/20 10:21 92 Non-Rebreather 15.0 100 10/06/20 09:00 Non-Rebreather 15.0 10/06/20 08:22 128/65 10/06/20 08:22 80 128/65 10/06/20 08:00 98.1 80 22 128/65 (86) 96 10/06/20 08:00 77 10/06/20 04:00 76 10/06/20 04:00 97.5 78 22 125/57 (79) 96 10/06/20 00:00 97.0 84 22 117/54 (75) 95 10/06/20 00:00 75 10/05/20 21:00 Non-Rebreather 15.0 10/05/20 20:00 97.9 88 22 125/60 (81) 97 10/05/20 20:00 79 10/05/20 19:21 92 Non-Rebreather 15.0 100 Height (Feet): 5 Height (Inches): 4.00 Weight (Pounds): 143 HEENT: mucous membranes moist Respiratory/Chest: other - oxygen by rebreathing mask Cardiovascular: tachycardia Abdomen: soft, non tender Extremities: no edema Neurologic/Psychiatric: alert, responsive Laboratory Tests Test 10/05/20 20:24 10/06/20 09:00 10/06/20 14:33 POC Whole Blood Glucose 223 MG/DL (74-106) H White Blood Count 24.3 K/UL (4.8-10.8) *H Red Blood Count 2.93 M/UL (4.70-6.10) L Hemoglobin 8.5 G/DL (14.2-18.0) L Hematocrit 25.4 % (42.0-52.0) L Mean Corpuscular Volume 86 FL (80-99) Mean Corpuscular Hemoglobin 28.9 PG (27.0-31.0) Mean Corpuscular Hemoglobin Concent 33.4 G/DL (32.0-36.0) Red Cell Distribution Width 13.7 % (11.6-14.8) Platelet Count 262 K/UL (150-450) Mean Platelet Volume 7.6 FL (6.5-10.1) Neutrophils (%) (Auto) % (45.0-75.0) Lymphocytes (%) (Auto) % (20.0-45.0) Monocytes (%) (Auto) % (1.0-10.0) Eosinophils (%) (Auto) % (0.0-3.0) Basophils (%) (Auto) % (0.0-2.0) Differential Total Cells Counted 100 Neutrophils % (Manual) 95 % (45-75) H Lymphocytes % (Manual) 1 % (20-45) L Monocytes % (Manual) 4 % (1-10) Eosinophils % (Manual) 0 % (0-3) Basophils % (Manual) 0 % (0-2) Band Neutrophils 0 % (0-8) Platelet Estimate Adequate Platelet Morphology Normal Hypochromasia 1+ Sodium Level 135 MMOL/L (136-145) L Potassium Level 4.7 MMOL/L (3.5-5.1) Chloride Level 104 MMOL/L (98-107) Carbon Dioxide Level 23 MMOL/L (21-32) Anion Gap 8 mmol/L (5-15) Blood Urea Nitrogen 78 mg/dL (7-18) H Creatinine 1.4 MG/DL (0.55-1.30) H Estimat Glomerular Filtration Rate 48.6 mL/min (>60) Glucose Level 263 MG/DL (74-106) #H Calcium Level 7.6 MG/DL (8.5-10.1) L Total Bilirubin 0.5 MG/DL (0.2-1.0) Direct Bilirubin 0.3 MG/DL (0.0-0.3) Aspartate Amino Transf (AST/SGOT) 29 U/L (15-37) Alanine Aminotransferase (ALT/SGPT) 34 U/L (12-78) Alkaline Phosphatase 106 U/L (46-116) Total Protein 5.1 G/DL (6.4-8.2) L Albumin 1.9 G/DL (3.4-5.0) L Globulin 3.2 g/dL Albumin/Globulin Ratio 0.6 (1.0-2.7) L Arterial Blood pH 7.182 (7.350-7.450) Arterial Blood Partial Pressure CO2 32.3 mmHg (35.0-45.0) L Arterial Blood Partial Pressure O2 57.0 mmHg (75.0-100.0) L Arterial Blood HCO3 11.8 mmol/L (22.0-26.0) *L Arterial Blood Oxygen Saturation 80.7 % (95-100) *L Arterial Blood Base Excess -15.2 (-2-2) *L Pratik Test Positive Current Medications Medications (Trade) Dose Ordered Sig/Tiffanie Route PRN Reason Start Time Stop Time Status Last Admin Dose Admin Acetaminophen (Tylenol) 650 mg Q4H PRN ORAL Mild Pain (Pain Scale 1-3)/ 09/28/20 23:45 10/28/20 23:44 Albuterol Sulfate (Proventil MDI) 2 puff Q6H PRN INH Shortness of Breath 09/28/20 23:45 12/27/20 23:44 Amlodipine Besylate (Norvasc) 10 mg DAILY ORAL 09/30/20 09:00 10/30/20 08:59 10/06/20 08:22 Aspirin (ASA) 81 mg DAILY ORAL 09/29/20 21:00 11/13/20 20:59 10/06/20 08:21 Atorvastatin Calcium (Lipitor) 40 mg BEDTIME ORAL 09/29/20 21:00 12/28/20 20:59 10/05/20 21:17 Dexamethasone (Decadron) 6 mg DAILY ORAL 09/29/20 09:00 10/09/20 08:59 10/06/20 08:22 Dextrose (Dextrose 50%) 25 ml Q30M PRN IV Hypoglycemia 09/29/20 18:30 12/28/20 18:29 Dextrose (Dextrose 50%) 50 ml Q30M PRN IV Hypoglycemia 09/29/20 18:30 12/28/20 18:29 Docusate Sodium (Colace) 100 mg TWICE A DAY ORAL 09/30/20 18:00 10/30/20 17:59 10/06/20 08:22 Enoxaparin Sodium (Lovenox) 40 mg DAILY SUBQ 10/05/20 09:53 01/03/21 09:52 10/06/20 08:24 Finasteride (Proscar) 5 mg DAILY ORAL 09/30/20 09:00 12/29/20 08:59 10/06/20 08:22 Insulin Aspart (NovoLOG) BEFORE MEALS AND HS SUBQ 09/30/20 16:30 12/29/20 16:29 10/06/20 12:24 Losartan Potassium (Cozaar) 100 mg DAILY ORAL 09/30/20 09:00 10/30/20 08:59 10/06/20 08:22 Magnesium Hydroxide (Mom) 30 ml BIDPRN PRN ORAL Constipation 09/30/20 15:45 10/30/20 15:44 Remdesivir 100 mg/ Sodium Chloride 250 ml @ 250 mls/hr Q24H IV 10/04/20 15:00 10/07/20 15:59 10/06/20 14:55 Sodium Chloride 1,000 ml @ 75 mls/hr [id number] IV 10/06/20 17:00 11/05/20 16:59 Tamsulosin HCl (Flomax) 0.4 mg BEDTIME ORAL 09/29/20 21:00 10/29/20 20:59 10/05/20 21:17 Cm Quintanilla MD Oct 06, 2020 16:26
[2020-10-06] MEDS ORDERED: cefTRIAXone 1 GM in D5W 55 ML IVPB SCH (16:30)
--- NOTE | 2020-10-06 17:00 | NUR ---
NURSE NOTES: please note after bolus, bp coming up to 99/44
[2020-10-06] MEDS: Sodium Bicarbonate 650mg Tab ORAL SCH (18:22)
--- NOTE | 2020-10-06 18:39 | NUR ---
NURSE NOTES: Re sodium bicarb tab. ensured pt swallowd it, opened his mouth and inspected, no tab present. ensure he took several sips of water, asked several times, "la pastilla es en la boca?" pt said no. Jc RT present.
--- NOTE | 2020-10-06 18:40 | NUR ---
NURSE HAND-OFF REPORT: Important Events on Shift:[Desaturation, ABG show acidic and low bicarb. Pt placed on continuous bipap, to be transfered to SDU as soon as bed is available. Pt had hypotension event, bolus given] Patient Status: [full code, on bipap, tachypnic] Diet: [low sodium CCHO M] Pending Orders: [transfer to [facility] (or icu overflow)] Pending Results/Labs:[] Pending MD notification:[] Latest Vital Signs: Temperature 97.9 , Pulse 100 , B/P 88 /31 , Respiratory Rate 24 , O2 SAT 95 , Venturi Mask, O2 Flow Rate 15.0 . Vital Sign Comment: [] EKG Rhythm: ST w/ BBB Rhythm change?: N MD Notified?: N - MD Response: Latest Ross Fall Score: 45 Fall Risk: High Risk Safety Measures: Call light Within Reach, Bed Alarm Zone 1, Side Rails Side Rails x2, Bed position Low and Locked. Fall Precautions: Patient Fall Education Report given to [Pending rn assignment]. Addendum: 10/06/20 at 1901 by Devi Macdonald RN Report given to Neel STALLINGS
[2020-10-06] MEDS: Atorvastatin 20mg tab ORAL SCH (21:00)
[2020-10-06] MEDS: Tamsulosin 0.4mg cap ORAL SCH (21:00)
--- NOTE | 2020-10-06 21:00 | NUR ---
NURSE NOTES: Received patient from [facility] Shaikh under the care of Dr. Perez for the admitting dx of hypoxia, c/o chest pain, and Covid-19 (+) status. Patient noted NKA and full code. Fall, aspiration precaution, and isolation observed and maintained at all times. Patient is noted lethargic and difficult to arouse. Tolerating BiPAP settings well with O2 >92%. Will continue current plan of care.
--- NOTE | 2020-10-06 21:25 | NUR ---
NURSE NOTES: Called Dr. Eldridge regarding patient being hypotensive, orders received for Levophed.
[2020-10-06] MEDS ORDERED: Norepinephrine 4mg/NS Premix 250 ML IV SCH (21:30)
--- NOTE | 2020-10-06 21:30 | NUR ---
NURSE NOTES: Called and left message for Dr. Chairez regarding patients hypotensive blood pressures and mentioned that we need central line insertion for pressors, also left message regarding patients ABG results, will await for call back.
--- NOTE | 2020-10-06 21:58 | NUR ---
NURSE NOTES: Called Dr. Chairez and left message regarding patients condition. Will wait for call back.
--- NOTE | 2020-10-06 23:00 | NUR ---
NURSE NOTES: Spoke with Dr. Chairez regarding patient's ABG, bicarb, respiration, and hypotensive status. MD ordered D5W c 1amp of bicarb for the patient. Noted and carried out.
[2020-10-07] VITALS: BP 62/40
[2020-10-07] MEDS: Sodium Bicarbonate 650mg Tab ORAL SCH
[2020-10-07 01:00] VITALS: BP 71/36
[2020-10-07 02:00] VITALS: BP 83/26
[2020-10-07] MEDS ORDERED: Sodium Bicarbonate 50 ML in D5W 1000ml 1,000 ML IV SCH ×2 (02:00→08:00)
[2020-10-07 03:00] VITALS: BP 62/35
--- NOTE | 2020-10-07 03:55 | NUR ---
CODE BLUE: See Code sheet which remains on paper.
--- NOTE | 2020-10-07 04:11 | Emergency Room Report ---
History of Present Illness General Chief Complaint: Chest Pain Source: Patient Present Illness HPI This is an 80-year-old male with a history of diabetes and renal failure. He was admitted for respiratory failure from Covid pneumonia. He is in the ICU. I responded to a CODE BLUE. Per nursing staff patient became bradycardic and a asystole. CPR was in progress on my arrival. Patient did not respond to epinephrine, atropine and bicarb. After 3 rounds of epinephrine he remained asystolic. No Doppler pulse. I stopped the code and pronounced the patient at 4:03 AM. Please see CODE BLUE sheet for full list of medication and time given. Allergies: Coded Allergies: No Known Allergies (Unverified , 09/28/20) COVID-19 Screening Contact w/high risk pt: Yes Experienced COVID-19 symptoms?: Yes COVID-19 Testing performed SLASHER: No COVID-19 Screening: Positive COVID-19 Nursing Documentation-[facility] Past Medical History: No Stated History Hx Cardiac Problems: No Hx COPD: Yes Hx Cancer: No Hx Gastrointestinal Problems: No Hx Neurological Problems: No Physical Exam Vital Signs Date Time Temp Pulse Resp B/P (MAP) Pulse Ox O2 Delivery O2 Flow Rate FiO2 10/03/20 07:49 Non-Rebreather 15.0 10/03/20 07:56 98.1 64 19 136/63 (87) 100 10/03/20 07:56 100 Medical Decision Making Diagnostic Impression: Primary Impression: COVID-19 Additional Impressions: Acute renal failure Anemia CHF (congestive heart failure) Pneumonia Cardiac arrest Last Vital Signs Date Time Temp Pulse Resp B/P (MAP) Pulse Ox O2 Delivery O2 Flow Rate FiO2 10/07/20 03:23 76 18 100 100 10/07/20 03:00 62/35 (44) 10/07/20 00:00 98.2 10/07/20 00:00 Bi-pap 15.0 Status: other Disposition: Condition: Referrals: NOT CHOSEN IPA/,REFERRING (PCP) Additional Instructions: Please note that this report is being documented using [employer] technology. This can lead to erroneous entry secondary to incorrect interpretation by the dictating instrument. Chico Simms MD Oct 07, 2020 04:11
--- NOTE | 2020-10-07 04:29 | NUR ---
NURSE NOTES: Called family and notified Daughter Torie Alejandro about patient .
--- NOTE | 2020-10-07 04:30 | NUR ---
NURSE NOTES: [employer] notified. Not a candidate
[2020-10-07] MEDS ORDERED: 1/2 NS 1000ml IV ONE (05:55)
[2020-10-07] MEDS ORDERED: Atropine Inj 1mg/10ml Syr ONE (05:55)
[2020-10-07] MEDS ORDERED: Calcium Chloride 100mg/ml Vial ONE (05:55)
[2020-10-07] MEDS ORDERED: Magnesium Sulfate 2ml Inj ONE (05:55)
== END 2020-10-07 05:56 | disposition expired | DRG 177 ==
LOC: EDBD 13:40 → EMR 15:20 → 2W 15:31 → EDBEDREQ 21:21 → 2E 09-30 18:04 → ICU 10-06 20:32
PROC: XW033E5 Introduction of Remdesivir Anti-infective into Peripheral Vein, Percutaneous Approach, New Technology Group 5 (ICD-10-PCS; principal; 2020-10-03)
PROC: 5A12012 Performance of Cardiac Output, Single, Manual (ICD-10-PCS; 2020-10-07)
DX: U07.1 COVID-19 (principal); J12.89 Other viral pneumonia; J96.01 Acute respiratory failure with hypoxia; J44.0 Chronic obstructive pulmonary disease with (acute) lower respiratory infection; N17.9 Acute kidney failure, unspecified; E87.2 Acidosis; K92.1 Melena; I11.0 Hypertensive heart disease with heart failure; I50.9 Heart failure, unspecified; D64.9 Anemia, unspecified; E11.65 Type 2 diabetes mellitus with hyperglycemia; D72.810 Lymphocytopenia
CPT/HCPCS: 36415; 71045; 80048; 80053; 81003; 82248; 82728; 82803; 82962; 83036; 83605; 83615; 83735; 83880; 84484; 85007; 85025; 85379; 85610; 85730; 86140; 86710; 87040; 92950; 93005; 93306; 94640; 99291; J0171; J1815; J3490; J7030; J7620; U0002